=== PATIENT | female | born 1945 | race Caucasian/White ===

== ENCOUNTER 2018-09-29 09:30 | Inpatient (IN) | payer BC ==
--- NOTE | 2018-10-04 16:04 | HP ---
HISTORY AND PHYSICAL: DATE OF ADMISSION/SURGERY: 10/13/18 DATE OF OFFICE VISIT: 10/03/18 SURGEON: Natacha Ríos MD * (DICTATED BY CARY AHUJA) PROCEDURE: Left total knee arthroplasty. CHIEF COMPLAINT: Left knee pain. HISTORY OF PRESENT ILLNESS: Ms. Matt eLhman is a 72-year-old female with end - stage osteoarthritis of the left knee. She has failed conservative treatment and elected to proceed with a left total knee arthroplasty. PAST MEDICAL HISTORY: AFib, TIA x2, hypertension, SVT, history of colon cancer , history of breast cancer, thoracic aortic aneurysm, and lymphocytic colitis. PAST SURGICAL HISTORY: Cardiac moniter placement in her left breast, lumpectomy, hernia repair, , D and C, hysterectomy, oophorectomy, saphenous ligation of the left leg, and hemicolectomy. CURRENT MEDICATIONS: 1. Eliquis 5 mg twice a day. 2. Amlodipine 2.5 mg daily. 3. Sotalol 120 mg half a tab twice a day. 4. Losartan potassium 50 mg one and a half tabs daily. 5. Crestor 10 mg daily. 6. Potassium chloride 10 mEq twice a day. 7. Cranberry. 8. Caltrate. 9. Toprol 50 mg every morning. 10. CoQ10. 11. Claritin as needed. 12. Anastrozole 1 mg daily. 13. Multivitamin. 14. Glucosamine chondroitin. 15. Turmeric daily. 16. Budesonide 3 mg 2 capsules every day. ALLERGIES: No known drug allergies. FAMILY HISTORY: Cancer and coronary artery disease. SOCIAL HISTORY: She is a 72-year-old female. She lives with her . She does not smoke or use drugs. REVIEW OF SYSTEMS: A complete 14-point review of systems was reviewed with the patient. It was positive for history of 2 prior TIAs as well as some occasional palpitations. She denies history of DVT, PE, hepatitis, HIV, or anesthesia problems. PHYSICAL EXAMINATION GENERAL: She is well developed, well nourished, in no acute distress. VITAL SIGNS: She stands 63 inches tall, weighs 160 pounds. Her blood pressure is 110/88, her heart rate is 72. HEENT: Normocephalic, atraumatic. NECK: Supple. No palpable lymph nodes. PULMONARY: The lungs are clear to auscultation bilaterally. CARDIO: Regular rate and rhythm. Strong S1, S2. ABDOMEN: Soft, nontender, nondistended. NEUROLOGICAL: She is alert and oriented x3. MUSCULOSKELETAL: Left lower extremity, the skin is intact. There are no open wounds or abrasions. She has a moderate left knee effusion, tenderness over the medial and lateral joint line. Range of motion is 10 to 120 degrees of flexion. There is a varus alignment of the knee. She has 2+ dorsalis pedis pulse. Intact sensation. Her lower extremity muscle group strengths are intact at 5/5. ASSESSMENT AND PLAN: Ms. Matt Lehman is a 72-year-old female with end-stage osteoarthritis of the left knee. She has failed conservative treatment and elected to proceed with a left total knee arthroplasty, which is scheduled for 10/13/[address] Ríos. Dr. Ríos discussed the risks and benefits of the surgery at today's visit and all of her questions were answered. She will follow with Dr. Ríos 2 weeks after the surgery. She was instructed to stop her Eliquis and aspirin 5 days prior to the surgery. CARY AHUJA [id number]/[facility] #: [id number] NICK
[2018-10-12] MEDS ORDERED: Buffered Lidocaine 1% SYRIN* 1 ML/SYRINGE INTRADERM ONE (13:46)
[2018-10-13] MEDS ORDERED: Tranexamic Acid 1,000 MG in NS 0.9% 50 ML* (outpatient use) IV SCH ×2
[2018-10-13] MEDS ORDERED: Gabapentin CAP(*) 300 MG PO ONE (06:00)
[2018-10-13] MEDS ORDERED: Lactated Ringers 1000 ML Bag* 1,000 ML IV SCH (06:00)
[2018-10-13] MEDS ORDERED: Acetaminophen TAB* 325 MG PO ONE (06:00)
[2018-10-13] MEDS ORDERED: Famotidine IV* 10 MG/ML 2 ML (20 mg) IV ONE (06:00)
--- OUTSIDE RECORDS SUMMARY | 2018-10-13 07:01 | XMS REPORT | Continuity of Care Document ---
:1945 External Reference #:[id number] Author Name Kalee Foote Care Team Providers Name Role Phone Jamaal Rogers MD Primary Care Physician Unavailable Payers Type Date Identification Numbers Payment Provider Subscriber Policy Number: [id number] [employer] Amadou Wilkes JR PayID: [id number] [address] [address] O[place] Gomes [address] Effective: 2014 Policy Number: [facility] Ins Amadou Wilkes Jr [id number] Ppo/Epo Expires: 2018 Group Number: [id number] [address] PayID: [id number] [place] [address] Advance Directives Description No Information Available Problems Date Description Provider Status Onset: 01/15/2015 Syncope and collapse Ama Sargent M.D. Active Onset: 01/15/2015 Palpitations Ama Sargent M.D. Active Onset: 01/15/2015 Hypokalemia Ama Sargent M.D. Active Onset: 01/15/2015 Benign essential hypertension Ama Sargent M.D. Active Onset: 09/24/2016 Paroxysmal supraventricular Ama Sargent M.D. Active tachycardia Onset: 04/16/2017 Pure hypercholesterolemia Ama Sargent M.D. Active Onset: 05/14/2017 Presence of other cardiac implants Ama Sargent M.D. Active and grafts Onset: 05/14/2017 Altered mental status Nuno Eemry M.D. Active Onset: 06/25/2017 Transient cerebral ischemia Nuno Emery M.D. Active Onset: 03/23/2018 Localized, primary osteoarthritis Natacha Ríos M.D. Active Onset: 09/13/2018 Aneurysm of thoracic aorta Ama Sargent M.D. Active Family History Date Family Member(s) Problem(s) Comments General Heart Disease General Hypertension General Cancer Father Lung Cancer Mother Hypertension Mother Atrial Fibrillation vs SVT. 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 Tobacco Use Start: Unknown End: Former Cigarette Smoker Unknown ETOH Use Currently consumes one glass of red alcohol wine daily Recreational Drug Use Denies Drug Use Tobacco Use Start: Unknown End: Patient is a former Unknown smoker Smoking Status Reviewed: 10/03/18 Patient is a former smoker Exercise Type/Frequency Exercises sporadically Allergies, Adverse Reactions, Alerts Description No Known Drug Allergies Medications Medication Date Status Form Strength Qnty SIG Indications Ordering Provider Sotalol HCL 09/23/ Active Tablets 120mg 1/2 tab by I47.1 Ama 2019 mouth twice a Shaw[place]en navarrete M.D. Eliquis 04/11/ Active Tablets 5mg 180tab take 1 by I48.0 Mirella S. 2018 s mouth twice a , N.P. Amlodipine 02/28/ Active Tablets 2.5mg 90tabs 1 by mouth Ama Besylate 2017 every day Ashlee Sargent Tylenol 05/14/ Active Tablets ER 500 90tabs 2 tablets as Ama Extra 2017 needed Issa Sargent M.D. Losartan 04/16/ Active Tablets 50mg 135tab 1 1/2 tablets I10 Ama Potassium 2017 s daily as Rosetta, directed by Ashlee your doctor. Crestor 04/16/ Active Tablets 10mg 90tabs 1 by mouth Ama 2017 every day Ashlee Sargent Potassium 09/24/ Active Capsules 10Meq 180cap 1 tablet by I47.1 Mirella S. Chloride ER 2017 ER s mouth twice a , day.. N.P. Cranberry 00/ Active Capsules 400mg 2 tab daily Unknown 0000 Caltrate 600 00/ Active Tablets 1500mg 1 by mouth Unknown 0000 daily Toprol XL / Active Tablets ER 50mg 90tabs 1 by mouth Mirella S. 0000 24HR daily in the , morning N.P. Co Q-10 00/00/ Active Capsules 100mg 1 by mouth Unknown 0000 every day Claritin 00/00/ Active Tablets 10mg 1 by mouth Unknown 0000 every day as needed Anastrozole 00/ Active Tablets 1mg 1 by mouth Unknown 0000 every day Multi-Day 00/00/ Active Tablets 1 by mouth Unknown 0000 every day Glucosamine 00// Active 1 tabs po Unknown Chondroitin 0000 daily Complex Turmeric / Active Capsules 400mg 1 tab daily Unknown 0000 Budesonide / Active Caps DR 3mg Take 2 Unknown 0000 Part Capsules Every Day Eliquis 04/08/ Hx Tablets 2.5mg 180tab 1 tablet by I48.0 Mirella Nixon 2018 - s mouth twice a Foster, day. blood N.P. 2018 thinner. Sotalol HCL 06/03/ Hx Tablets 120mg 90tabs 1/2 tab by I47.1 Ama () 2016 - mouth twice a [place], 09/23/ day M.D. 2018 Sotalol HCL 05/14/ Hx Tablets 80mg 90tabs 1/2 tab by I47.1 Ama 2016 - mouth three [place], 06/03/ times a day M.D. 2016 ( you will need to cut pill in half and take 1/2 pill twice a day) [place] 07/29/ Hx Tablets 5-325mg 20tabs 1-2 tab by Marlene Valerio 2015 mouth every 4 Foster, hours as MD needed Fish Oil / Hx Capsules 1000mg 1 by mouth Unknown 0000 every day Aspirin // Hx Tablets 81mg 1 by mouth Unknown 0000 - every day 2017 Colace / Hx Capsules 100mg 1 by mouth Unknown 0000 - daily prn 2015 Crestor 00/ Hx Tablets 10mg 1 by mouth Unknown 0000 every day Osteo Bi-Flex 00/00/ Hx Tablets daily Unknown Advanced 0000 - Double With 2014 Joint Shield Coconut Oil / Hx Oil daily Unknown 0000 Zofran Odt 00/ Hx Tablets 4mg every 8 hours Unknown 0000 - Dispers as needed 2014 Entocort Ec / Hx Caps DR 3mg one every day Unknown 0000 - Part 2016 K Chloride / Hx 20Meq one tab daily I47.1 Unknown 0000 - 2016 Motrin Ib / Hx Tablets 200mg as needed Unknown - 2016 Aleve / Hx Tablets 220mg as needed Unknown - 2016 Estradiol Hx Estradiol Unknown 0000 1mg, E striol,1mg,Pr ogesterone 60mg,Dhea 5 mg, Pregnenolone 30mg,Testeron e 1mg half a lozenge daily Crestor / Hx Tablets 5mg 1 by mouth Unknown 0000 - every day 2016 Lisinopril / Hx Tablets 5mg 1 by mouth I10 Unknown 0000 - every day 2016 Aleve / Hx Capsules 220mg 1-2 by mouth Unknown 0000 - once a day as 2017 Entocort Hx Unknown - 2017 Medications Administered in Office Medication Date Status Form Strength Qnty SIG Indications Ordering Provider Depomedrol Administered Injection Natacha 40MG 018 Ashlee Ríos Technetium TC Administered Injection Arsen DMary 99M 015 Ashlee Corderoosmin, Per Unit Dose Up To 40 Millicuries Technetium TC Administered Injection Ama 99M 015 Jani Sargent M.D. Per Unit Dose Up To 40 Millicuries Immunizations Description No Information Available Vital Signs Date Vital Result Comment 10/03/2018 9:20am Height 63.75 inches 5'3.75" Weight 160.00 lb Heart Rate 78 /min BP Systolic Sitting 110 mmHg BP Diastolic Sitting 88 mmHg Pain Level 1 BMI (Body Mass Index) 27.7 kg/m2 09/13/2018 10:56am Height 63.75 inches 5'3.75" Weight 161.00 lb without shoes Heart Rate 64 /min BP Systolic Sitting 102 mmHg Lue lg cuff BP Diastolic Sitting 76 mmHg Lue lg cuff BP Systolic Standing 106 mmHg Lue lg cuff BP Diastolic Standing 80 mmHg Lue lg cuff BMI (Body Mass Index) 27.8 kg/m2 08/31/2018 9:02am Height 63.75 inches 5'3.75" Heart Rate 163 /min BP Systolic 110 mmHg BP Diastolic 72 mmHg Body Temperature 97.6 F Pain Level 4 07/05/2018 1:27pm Height 63.75 inches 5'3.75" Weight 164.00 lb no shoes Heart Rate 74 /min BP Systolic Sitting 112 mmHg lue reg cuff BP Diastolic Sitting 78 mmHg lue reg cuff BP Systolic Standing 116 mmHg lue reg cuff BP Diastolic Standing 80 mmHg lue reg cuff BMI (Body Mass Index) 28.4 kg/m2 Ejection Fraction 55-60% Anant 04/22/2017 06/07/2018 10:53am Height 63.75 inches 5'3.75" Weight 161.25 lb Heart Rate 72 /min BP Systolic Sitting 122 mmHg BP Diastolic Sitting 82 mmHg Respiratory Rate 16 /min O2 % BldC Oximetry 97 % BMI (Body Mass Index) 27.9 kg/m2 05/20/2018 3:25pm Height 63.75 inches 5'3.75" Weight 154.00 lb Heart Rate 81 /min Respiratory Rate 17 /min Pain Level 5 BMI (Body Mass Index) 26.6 kg/m2 04/08/2018 11:28am Height 63.75 inches 5'3.75" Weight 154.00 lb with shoes Heart Rate 66 /min BP Systolic Sitting 114 mmHg Rue reg cuff BP Diastolic Sitting 80 mmHg Rue reg cuff BP Systolic Standing 110 mmHg Rue reg cuf BP Diastolic Standing 80 mmHg Rue reg cuf Respiratory Rate 16 /min BMI (Body Mass Index) 26.6 kg/m2 03/23/2018 8:36am Height 63.75 inches 5'3.75" Weight 152.00 lb Heart Rate 76 /min BP Systolic 120 mmHg BP Diastolic 80 mmHg BMI (Body Mass Index) 26.3 kg/m2 01/14/2018 10:12am Height 64 inches 5'4" Weight 159.00 lb w/ shoes Heart Rate 72 /min BP Systolic Sitting 144 mmHg lue rg cuff BP Diastolic Sitting 82 mmHg lue rg cuff BP Systolic Standing 132 mmHg lue rg cuff BP Diastolic Standing 88 mmHg lue rg cuff Respiratory Rate 18 /min BMI (Body Mass Index) 27.3 kg/m2 Ejection Fraction 55-60% Anant 04/22/17 09/16/2017 1:29pm Height 64 inches 5'4" Weight 156.00 lb Heart Rate 64 /min BP Systolic Sitting 132 mmHg Rue reg cuff BP Diastolic Sitting 92 mmHg Rue reg cuff BP Systolic Standing 128 mmHg Rue BP Diastolic Standing 96 mmHg Rue Respiratory Rate 18 /min BMI (Body Mass Index) 26.8 kg/m2 Ejection Fraction 55-60% 04/12/17 06/25/2017 2:21pm Height 64 inches 5'4" Weight 152.00 lb per pt Heart Rate 72 /min reg BP Systolic Sitting 104 mmHg Rue, reg cuff BP Diastolic Sitting 64 mmHg Rue, reg cuff Respiratory Rate 16 /min BMI (Body Mass Index) 26.1 kg/m2 06/18/2017 12:47pm Height 64 inches 5'4" Weight 152.31 lb with shoes Heart Rate 70 /min BP Systolic Sitting 140 mmHg Rue reg cuff BP Diastolic Sitting 80 mmHg Rue reg cuff BP Systolic Standing 134 mmHg Rue reg cuff BP Diastolic Standing 78 mmHg Rue reg cuff Respiratory Rate 17 /min BMI (Body Mass Index) 26.1 kg/m2 Ejection Fraction 55-60% date 04/12/17 ECHO 06/03/2017 10:03am Height 64 inches 5'4" Weight 153.50 lb with shoes Heart Rate 62 /min BP Systolic 146 mmHg Rue reg cuff sit BP Diastolic 94 mmHg Rue reg cuff sit BP Systolic Sitting 140 mmHg Lue reg cuff BP Diastolic Sitting 90 mmHg Lue reg cuff BP Systolic Standing 128 mmHg Lue reg cuff BP Diastolic Standing 88 mmHg Lue reg cuff BP Systolic Lying Down 136 mmHg Rue reg cuff standing BP Diastolic Lying Down 94 mmHg Rue reg cuff standing Respiratory Rate 16 /min BMI (Body Mass Index) 26.3 kg/m2 05/14/2017 2:19pm Height 64 inches 5'4" Weight 151.00 lb Heart Rate 82 /min BP Systolic 118 mmHg BP Diastolic 86 mmHg BMI (Body Mass Index) 25.9 kg/m2 05/14/2017 11:10am Height 64 inches 5'4" Weight 153.25 lb with shoes Heart Rate 70 /min BP Systolic Sitting 120 mmHg Rue reg cuff BP Diastolic Sitting 90 mmHg Rue reg cuff BP Systolic Standing 120 mmHg Rue reg cuff BP Diastolic Standing 92 mmHg Rue reg cuff Respiratory Rate 17 /min BMI (Body Mass Index) 26.3 kg/m2 Ejection Fraction 55-60% date 04/12/17 ECHO 04/16/2017 8:01am Height 64 inches 5'4" Weight 152.00 lb Heart Rate 64 /min BP Systolic Sitting 144 mmHg BP Diastolic Sitting 100 mmHg BP Systolic Standing 138 mmHg BP Diastolic Standing 100 mmHg BMI (Body Mass Index) 26.1 kg/m2 Ejection Fraction 55-60% ECHO 04/12/17 09/24/2016 1:23pm Height 64 inches 5'4" Weight 152.00 lb with shoes Heart Rate 68 /min BP Systolic Sitting 120 mmHg Rue reg cuff BP Diastolic Sitting 78 mmHg Rue reg cuff BP Systolic Standing 108 mmHg Rue reg cuff BP Diastolic Standing 72 mmHg Rue reg cuff Respiratory Rate 17 /min BMI (Body Mass Index) 26.1 kg/m2 Ejection Fraction 60% 03/22/12 echo 08/17/2016 2:21pm Heart Rate 72 /min BP Systolic 116 mmHg BP Diastolic 70 mmHg Respiratory Rate 18 /min Body Temperature 97.3 F 07/29/2016 1:08pm Height 65 inches 5'5" Weight 154.00 lb Heart Rate 72 /min BP Systolic 128 mmHg BP Diastolic 82 mmHg Respiratory Rate 18 /min Body Temperature 97.5 F BMI (Body Mass Index) 25.6 kg/m2 07/20/2016 3:46pm Height 65 inches 5'5" Weight 154.00 lb Heart Rate 78 /min BP Systolic 120 mmHg BP Diastolic 82 mmHg Respiratory Rate 16 /min Body Temperature 97.5 F BMI (Body Mass Index) 25.6 kg/m2 03/05/2015 8:55am Height 65 inches 5'5" Weight 152.00 lb with shoes Heart Rate 76 /min BP Systolic Sitting 126 mmHg Ra, reg cuff BP Diastolic Sitting 82 mmHg Ra, reg cuff BP Systolic Standing 124 mmHg Ra BP Diastolic Standing 86 mmHg Ra Respiratory Rate 16 /min BMI (Body Mass Index) 25.3 kg/m2 Ejection Fraction 60% 03/22/2012 01/15/2015 10:45am Height 65 inches 5'5" Weight 152.00 lb Heart Rate 62 /min BP Systolic 108 mmHg right arm, reg cuff BP Diastolic 78 mmHg right arm, reg cuff BP Systolic Sitting 114 mmHg left arm, reg cuff BP Diastolic Sitting 80 mmHg left arm, reg cuff BP Systolic Standing 104 mmHg left arm, reg cuff BP Diastolic Standing 80 mmHg left arm, reg cuff Respiratory Rate 16 /min BMI (Body Mass Index) 25.3 kg/m2 Results Test Date Facility Test Result H/L Range Note Basic Metabolic 09/20/2018 [facility] Sodium 138 mmol/L N 135- [address] [place] [address] [phone] Potassium 4.2 mmol/L N 3.5-5.0 Chloride 102 mmol/L N 101-111 Co2 Carbon Dioxide 32 mmol/L N 22-32 Anion Gap 4 mmol/L N 2-11 Glucose 90 mg/dL N 70-100 Blood Urea Nitrogen 15 mg/dL N 6-24 Creatinine 0.72 mg/dL N 0.51-0.95 BUN/Creatinine Ratio 20.8 High 8-20 Calcium 9.8 mg/dL N 8.6-10.3 Egfr Non- 79.9 >60 Egfr 96.6 >60 1 Laboratory test 02/09/2018 [facility] Cytology SEE RESULT 2 , [address] [place] [address] [phone] Laboratory test 02/09/2018 [facility] Cytology SEE RESULT [address] [place] [address] [phone] Istat 04/20/2017 [facility] Poc Bun 22 mg/dL High 9-18 BUN/Crea/Egfr/V [address] [place] [address] [phone] Poc Crea Mainct 0.7 mg/dL N 0.6-0.9 GFR Non- MCT 82.7 N >60 GFR Mainct 106.4 N >60 5 Vitamin B12 And 04/20/2017 [facility] Vitamin B12 646 pg/mL N 180-914 6 Folate Serum [address] [place] [address] [phone] Folic Acid (Folate) > 20.00 ng/mL N >3.99 Laboratory test 04/20/2017 [facility] TSH (Thyroid 1.72 mcIU/mL N 0.34-5.[address] Stim [place]) [place] [address] [phone] Homocysteine 5 mcmol/L N 7 Nuclear AB (Katya) By Ifa Igg <1:80 (Negative) N 8 Laboratory test 08/07/2016 [facility] Surgical SEE RESULT [address] [place] [address] [phone] Laboratory test 07/13/2016 [facility] Surgical SEE RESULT [address] [place] [address] [phone] 1 Because ethnic data is not always readily available, this report includes an eGFR for both -Americans and non- Americans. The National Kidney Disease Education Program (NKDEP) does not endorse the use of the MDRD equation for patients that are not between the ages of 18 and 70, are , have extremes of body size, muscle mass, or nutritional status, or are non- or non-. According to the National Kidney Foundation, irrespective of diagnosis, the stage of the disease is based on the level of kidney function: Stage Description GFR(mL/min/1.73 m(2)) 1 Kidney damage with normal or decreased GFR 90 2 Kidney damage with mild decrease in GFR 60-89 3 Moderate decrease in GFR 30-59 4 Severe decrease in GFR 15-29 5 Kidney failure <15 (or dialysis) 2 NO TRACKING 3 SEE RESULT BELOW Name: JULIANNA MANUEL : [address]: Jamaal Rogers MD Acct: [id number] Unit: [id number] AGE: 72 Location: [facility] Re02/09/18 SEX: F Status: REG REF SPEC: [id number] AMPARO: 02/09/18-[address]: Jamaal Rogers MD REQ: [id number] RECD: 02/09/184540 STATUS: AVINASH LEBRON DR: Ama Sargent MD _ ORDERED: NG THIN LAYER COMMENTS: NO TRACKING FINAL DIAGNOSIS Urine, voided: Negative for malignant cells. URINE VOID - URINE GROSS DESCRIPTION 50 mls of clear yellow fluid. Signed by and Reported on: Abel Gil MD 1248 END OF REPORT DEPARTMENT OF PATHOLOGY, [address] [place] [address] Abel Gil M.D. Director [facility] # [id number] 4 SEE RESULT BELOW Name: ANNA AVIVARosettaJULIANNA : [address]: Jamaal Rogers MD Acct: [id number] Unit: [id number] AGE: 72 Location: [facility] Re02/09/18 SEX: F Status: REG REF SPEC: [id number] AMPARO: 06/ SUBM DR: Jamaal Rogers MD REQ: [id number] RECD: 02/09/18 STATUS: AVINASH LEBRON DR: Ama Sargent MD _ ORDERED: NG THIN LAYER COMMENTS: NO TRACKING FINAL DIAGNOSIS Urine, voided: Negative for malignant cells. URINE VOID - URINE GROSS DESCRIPTION 50 mls of clear yellow fluid. Signed by and Reported on: Abel Gil MD 1248 END OF REPORT DEPARTMENT OF PATHOLOGY, [address] [place] [address] Abel Gil M.D. Director [facility] # [id number] 5 Because ethnic data is not always readily available, this report includes an eGFR for both -Americans and non- Americans. The National Kidney Disease Education Program (NKDEP) does not endorse the use of the MDRD equation for patients that are not between the ages of 18 and 70, are , have extremes of body size, muscle mass, or nutritional status, or are non- or non-. According to the National Kidney Foundation, irrespective of diagnosis, the stage of the disease is based on the level of kidney function: Stage Description GFR(mL/min/1.73 m(2)) 1 Kidney damage with normal or decreased GFR 90 2 Kidney damage with mild decrease in GFR 60-89 3 Moderate decrease in GFR 30-59 4 Severe decrease in GFR 15-29 5 Kidney failure <15 (or dialysis) 6 Normal Range 180 to 914 Indeterminate Range 145 to 180 Deficient Range <145 7 REFERENCE VALUE <=13 (Fasting) ADDITIONAL INFORMATION This test was developed and its performance characteristics determined by [facility] in a manner consistent with CLIA requirements. This test has not been cleared or approved by the U.S. Food and Drug Administration. Test Performed by: [facility] - [address] [address] 8 <1:80 (Negative) REFERENCE VALUE <1:80 (Negative) Test Performed by: [facility] - [address] [address] 9 SEE RESULT BELOW Name: ANNA JULIANNA WILKES : [address]: Marlene Suárez MD Acct: [id number] Unit: [id number] AGE: 70 Location: [facility] Re08/07/16 SEX: F Status: REG [facility] SPEC: [id number] AMPARO: 08/07/16-1257 [facility] DR: Marlene Suárez MD REQ: [id number] RECD: 08/07/16 STATUS: SOUT _ ORDERED: KERATIN STAIN/5, LEVEL V/3 Pankeratin immunostains, with appropriately reacting controls, were performed on sections cut from blocks 1D, 1F, 1G, and 2D and support the previously rendered diagnoses. There is no evidence of invasive carcinoma. Addendum Signed (signature on file) Sonya Henley MD 1503 FINAL DIAGNOSIS 1. Breast, left, lumpectomy: -- Ductal carcinoma in situ (DCIS), with: Size: 5.2 mm. Extent and distribution: Present adjacent to prior biopsy cavity. Architectural pattern: Cribriform solid, and comedo types. Nuclear grade: High. Necrosis: Present. Microcalcifications: Present. Microinvasion: Not identified. ER/AR by immunohistochemistry with appropriate controls: ER: Per [id number] positive, 2-3 plus, 60%. AR: Per [id number] negative. Margins: All margins are negative by greater than 5 mm. Other findings: Skin with no significant pathologic abnormalities. pTNM histopathologic stage: pTis. 2. Breast, left, medial to first specimen, excision: -- Benign breast tissue with prior biopsy site changes, proliferative fibrocystic change, focal microcalcifications, and duct ectasia. 3. Brick lymph node #1, excision: -- One lymph node negative for metastatic carcinoma (0/1). COMMENT: CONTINUED ON NEXT PAGE * ML=Testing performed at Main Lab DEPARTMENT OF PATHOLOGY, [address] [place] [address] Abel Gil M.D. Director [facility]ONO # [id number] RUN DATE: 08/11/16 [facility] LAB LIVE PAGE 2 Patient: JULIANNA MANUEL [id number] (Continued) SPECIMEN COMMENTS (Continued) Per Brick lymph node protocol, a pankeratin immunostain, with appropriately reacting controls, was performed on sections cut from specimen [address] Gil reviewed this case in intradepartmental consultation and agrees with the diagnosis. PRE-OPERATIVE DIAGNOSIS Malignant neoplasm of upper outer quadrant of left breast; usual markings GROSS DESCRIPTION 1. The specimen is received fresh labeled, Excision of Left Breast Cancer, Usual Markings, and consists of a 5.5 x 4.3 x 2.0 cm yellow pink ovoid portion of fibrofatty soft tissue with three attached sutures, which are designated as follows: long-lateral, short-superior and medium-medial. The specimen is partially surfaced by a 2.1 x 0.5 cm castillo- pink wrinkled skin ellipse on the mid anterior lateral surface. There is a needle localization wire entering the specimen through the skin ellipse and extending towards the superior anterior medial aspect. There is a 1.3 x 0.8 x 0.7 cm markedly hemorrhagic cavity within the central specimen associated with the localization wire, within 0.5 cm of the deep margin and 0.8 cm from the superior anterior margin. Within the cavity there is a 0.2 x 0.1 cm silver metallic clip. The remaining cut surface consists predominantly of mildly hemorrhagic yellow lobulated adipose tissue with scant interspersed castillo-pink fibrous tissue. The specimen is inked as follows: superior anterior-blue, inferior anterior- green and deep-black, serially sectioned from lateral to medial and indirect sales representative sections are submitted in cassettes A through J to include cavity in cassettes D through G including section containing clip in cassette E. 2. The specimen is received in formalin labeled, Left Breast Tissue, Medial to First Specimen, and consists of a 5.8 x 4.8 x 2.7 cm yellow-pink irregular portion of fibrofatty soft tissue with three attached sutures, which are designated as follows: long-lateral, short-superior and medium-medial. The lateral margin is consistent with the false margin while the medial margin is consistent with the true margin. The cut surface consists of moderately hemorrhagic yellow-red lobulated adipose tissue with scant interspersed castillo-white fibrous tissue. The discrete lesion is not identified. The specimen is inked as follows: false margin-yellow, anterior true margin-blue and remaining true margin- black, serially sectioned from superior to inferior and indirect sales representative sections are submitted in cassettes A through I. 3. The specimen is received in formalin labeled, Brick Node #1, and consists of a 1.0 x 0.7 x 0.5 cm castillo-pink lymph node with a small amount of adherent yellow fat. The cut surface is glistening castillo-pink. The specimen is serially sectioned and entirely submitted in one cassette. CONTINUED ON NEXT PAGE * ML=Testing performed at Main Lab DEPARTMENT OF PATHOLOGY, [address] [place] [address] Abel Gil M.D. Director [facility] # [id number] RUN DATE: 08/11/16 [facility] LAB LIVE PAGE 3 Patient: JULIANNA MANUEL [id number] (Continued) GROSS DESCRIPTION (Continued) Signed (signature on file) Sonya Henley MD 1114 END OF REPORT * ML=Testing performed at Main Lab DEPARTMENT OF PATHOLOGY, [address] [place] [address] Abel Gil M.D. Director [facility] # [id number] 10 SEE RESULT BELOW Name: JULIANNA MANUEL : [address]: Jose R Reece MD Acct: [id number] Unit: [id number] AGE: 70 Location: [facility] Re07/13/16 SEX: F Status: REG REF SPEC: [id number] AMPARO: 07/13/16 [facility] [address]: Jose R Reece MD REQ: [id number] RECD: 07/27/16 STATUS: AVINASH LEBRON DR: Marlene Olivares PA _ ORDERED: Consult w/slide FINAL DIAGNOSIS Breast, left, core biopsy: -- Ductal carcinoma in situ (DCIS), with: Size: 3.8 mm largest span. Extent and distribution: 2 small foci seen occupying approximately 10% of total core volume. Architectural pattern: Solid and cribriform. Nuclear grade: 3. Necrosis: Present. Microcalcifications: Present in association with DCIS as well as benign breast tissue. Microinvasion: Not seen. ER/AR by immunohistochemistry with appropriate controls: ER: Positive, 2-3 plus, 60% of DCIS component. AR: Negative. Other findings: None. Predicted pTNM histopathologic stage: pTis. Comment: I agree with the referring pathologist interpretation. PRE-OPERATIVE DIAGNOSIS Ductal carcinoma in situ left breast GROSS DESCRIPTION Received are 2 hematoxylin and eosin stained slides as well as 2 immunohistochemical he stained slides labeled with the patient's name and a OS-1 6-0 9119 [facility]. Accompanying these slides is a pathology report labeled with the patient's name and a OS-1 6-0 9119 [facility], [address] [place] [address], signed by Dr. JARAMILLO CONTINUED ON NEXT PAGE * ML=Testing performed at Main Lab DEPARTMENT OF PATHOLOGY, [address] [place] [address] Abel Gil M.D. Director [facility] # [id number] RUN DATE: 07/27/16 [facility] LAB LIVE PAGE 2 Patient: JULIANNA MANUEL [id number] (Continued) GROSS DESCRIPTION (Continued) GROSS DESCRIPTION (Continued) Shanell on 07/15/2016 Signed (signature on file) Abel Gil MD 1535 END OF REPORT * ML=Testing performed at Main Lab DEPARTMENT OF PATHOLOGY, [address] [place] [address] Abel Gil M.D. Director [facility] # [id number] Procedures Date Code Description Status 09/20/2018 41417 ECHO Transthoracic, Real-Time 2D With Doppler And Color Completed Flow 09/20/2018 19777 ECHO Transthoracic, Real-Time 2D With Doppler And Color Completed Flow 09/13/2018 84718 EKG Tracing & Interpretation Completed 08/15/2018 36523 Implantable Cardio System Loop Recorder Sys Remota Data Completed Acquistio 08/15/2018 19101 Interrogation Dev Loop Recorder Incl Physician Completed Analysis,Rev,Repor 07/15/2018 07052 Implantable Cardio System Loop Recorder Sys Remota Data Completed Acquistio 07/15/2018 17778 Interrogation Dev Loop Recorder Incl Physician Completed Analysis,Rev,Repor 07/05/2018 34295 EKG Tracing & Interpretation Completed 06/16/2018 42897 Sleep Study Unattended,HRT Rate,Oxygen Sat,Resp Completed Effort/Airflow 06/14/2018 93306 Implantable Cardio System Loop Recorder Sys Remota Data Completed Acquistio 06/14/2018 34342 Interrogation Dev Loop Recorder Incl Physician Completed Analysis,Rev,Repor 05/14/2018 72429 Implantable Cardio System Loop Recorder Sys Remota Data Completed Acquistio 05/14/2018 01723 Interrogation Dev Loop Recorder Incl Physician Completed Analysis,Rev,Repor 04/13/2018 95397 Implantable Cardio System Loop Recorder Sys Remota Data Completed Acquistio 04/13/2018 83280 Interrogation Dev Loop Recorder Incl Physician Completed Analysis,Rev,Repor 03/23/2018 20955 Inject/Drain Joint/Bursa Major W/O US Completed 03/13/2018 08823 Implantable Cardio System Loop Recorder Sys Remota Data Completed Acquistio 03/13/2018 10544 Interrogation Dev Loop Recorder Incl Physician Completed Analysis,Rev,Repor 02/10/2018 10337 Implantable Cardio System Loop Recorder Sys Remota Data Completed Acquistio 02/10/2018 68685 Interrogation Dev Loop Recorder Incl Physician Completed Analysis,Rev,Repor 01/14/2018 20620 EKG Tracing & Interpretation Completed 01/10/2018 46122 Implantable Cardio System Loop Recorder Sys Remota Data Completed [place] 01/10/2018 49727 Interrogation Dev Loop Recorder Incl Physician Completed Analysis,Rev,Repor 12/10/2017 90792 Implantable Cardio System Loop Recorder Sys Remota Data Completed [place] 12/10/2017 84716 Interrogation Dev Loop Recorder Incl Physician Completed Analysis,Rev,Repor 11/09/2017 29858 Implantable Cardio System Loop Recorder Sys Remota Data Completed [place]io 11/09/2017 74027 Interrogation Dev Loop Recorder Incl Physician Completed Analysis,Rev,Repor 10/09/2017 24937 Implantable Cardio System Loop Recorder Sys Remota Data Completed [place] 10/09/2017 12434 Interrogation Dev Loop Recorder Incl Physician Completed Analysis,Rev,Repor 09/16/2017 86742 EKG Tracing & Interpretation Completed 09/08/2017 60272 Interrogation Dev Loop Recorder Incl Physician Completed Analysis,Rev,Repor 09/08/2017 77777 Implantable Cardio System Loop Recorder Sys Remota Data Completed [place] 08/08/2017 94729 Implantable Cardio System Loop Recorder Sys Remota Data Completed [place]io 08/08/2017 42709 Interrogation Dev Loop Recorder Incl Physician Completed Analysis,Rev,Repor 07/08/2017 87747 Implantable Cardio System Loop Recorder Sys Remota Data Completed [place] 07/08/2017 72401 Interrogation Dev Loop Recorder Incl Physician Completed Analysis,Rev,Repor 06/18/2017 33527 EKG Tracing & Interpretation Completed 06/07/2017 56904 Implantable Cardio System Loop Recorder Sys Remota Data Completed [place] 06/07/2017 14782 Interrogation Dev Loop Recorder Incl Physician Completed Analysis,Rev,Repor 06/03/2017 61620 EKG Tracing & Interpretation Completed 05/24/2017 98757 Interrogation Device Eval,Implantable Loop Recorder Completed System 05/14/2017 54063 Interrogation Device Eval,Implantable Loop Recorder Completed System 05/06/2017 16997 Implant Cardiac Loop Recorder Completed 04/22/2017 72444 Color Flow Doppler/Interp & Reprt Completed 04/22/2017 53924 Pulse Wave/Continuous-Interp.RPT Completed 04/22/2017 76924 Echocardiography, Transesophageal, Real Time W/Image 2D Completed W/W/O M-M 04/19/2017 76463 EEG Recording Awake & Drowsy Completed 04/16/2017 89695 EKG Tracing & Interpretation Completed 04/12/2017 40444 ECHO Transthorasic Realtime 2D W Doppler & Color Flow Completed Hosp 09/24/2016 74207 EKG Tracing & Interpretation Completed 08/07/2016 87382 Biopsy/Excision Deep Axillary Node(S) Completed 08/07/2016 62275 Mastectomy Partial Completed 08/07/2016 39420788 Mammogram Completed 06/30/2016 [id number] Mammogram Completed 03/22/2015 70222 Stress Test Completed 03/22/2015 19155 Myocardial Perfusion Imaging Tomographic (Spect) Completed Multiple Studies 03/22/2015 21312 Myocardial Perfusion Imaging Tomographic (Spect) Completed Multiple Studies 02/19/2015 69500 Stress ECHO Interpretation/Report Hospital Completed 02/19/2015 36221 Treadmill Interp/Report Only Completed 02/19/2015 90100 Stress Test Supervsn W/Out I/R Completed 01/15/2015 04738 EKG Tracing & Interpretation Completed Encounters Type Date Location Provider Dx Diagnosis Office Visit 09/13/2018 [facility] Ama Sargent, Z01.810 Encounter for 11:30a Of Meme Rosado preprocedural cardiovascular examination I47.1 Supraventricular tachycardia I48.0 Paroxysmal atrial fibrillation I10 Essential (primary) hypertension R55 Syncope and collapse G45.9 Transient cerebral ischemic attack, unspecified I71.2 Thoracic aortic aneurysm, without rupture M17.12 Unilateral primary osteoarthritis, left knee Office Visit 08/31/2018 8:45a Orthopedic Services Natacha Ríos, M25.562 Pain in left Of C.M.A. M.D. 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 K52.832 Lymphocytic colitis Z85.030 Personal history of malignant carcinoid tumor of lg int Office Visit 07/05/2018 [place] Mirella Nixon I47.1 Supraventricular 1:30p Cardiology Of Jose Armando N.PMary tachycardia Grievance And Appeals Specialist G47.33 Obstructive sleep apnea (adult) (pediatric) I48.0 Paroxysmal atrial fibrillation I10 Essential (primary) hypertension Office Visit 06/07/2018 11:00a Pulmonology & Sleep Anabel Cortez, R06.83 Snoring Services AT [place] BARON R09.02 Hypoxemia Office Visit 05/20/2018 Orthopedic Natacha I47.1 Supraventricular 3:15p Services [facility] Ríos tachycardia C.M.A. I48.0 Paroxysmal atrial fibrillation Z95.818 Presence of other cardiac implants and grafts M25.461 Effusion, right knee M25.562 Pain in left knee M17.12 Unilateral primary osteoarthritis, left knee Office Visit 04/08/2018 11:30a [facility] Mirella SMary I48.0 Paroxysmal atrial Of Grievance And Appeals Specialist Jose Armando, N.P. fibrillation I47.1 Supraventricular tachycardia Z95.818 Presence of other cardiac implants and grafts I10 Essential (primary) hypertension Office Visit 03/23/2018 Orthopedic Natacha I47.1 Supraventricular 8:30a Services [facility] Ríos tachycardia C.M.A. 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 Z17.0 Estrogen receptor positive status [ER+] M25.50 Pain in unspecified joint K52.832 Lymphocytic colitis Z85.038 Personal history of malignant neoplasm of large intestine Office Visit 01/14/2018 Billy Sargent I47.1 Supraventricular 10:20a Cardiology Of [place] tachycardia Grievance And Appeals Specialist AT [facility] Z95.818 Presence of other cardiac implants and grafts E78.00 Pure hypercholesterolemia, unspecified I10 Essential (primary) hypertension Office Visit 09/16/2017 Billy Sargent I47.1 Supraventricular 1:50p Cardiology Of [place] tachycardia [facility] R55 Syncope and collapse Z95.818 Presence of other cardiac implants and grafts Office Visit 06/30/2017 4:30p Oncology Cristal Crews, D05.12 Intraductal Services Of Meme Rosado carcinoma in situ AT [place] of left breast Z17.0 Estrogen receptor positive status [ER+] M25.50 Pain in unspecified joint Z85.038 Personal history of malignant neoplasm of large intestine Office Visit 06/25/2017 Mitch Reina I47.1 Supraventricular 2:15p Kailyn Emery M.D. tachycardia [facility] Z86.73 Prsnl hx of TIA (TIA), and cereb infrc w/o resid deficits Z79.82 intermediate (current) use of aspirin Office Visit 06/18/2017 Billy Sargent I47.1 Supraventricular 1:00p Cardiology Of [place] tachycardia [facility] Z95.818 Presence of other cardiac implants and grafts G45.9 Transient cerebral ischemic attack, unspecified R55 Syncope and collapse Office Visit 05/14/2017 Mitch Reina R41.0 Disorientation, 2:15p Kailyn Emery M.D. unspecified Services [facility] Office Visit 05/14/2017 Billy Sargent, G45.9 Transient cerebral 11:20a Cardiology Of M.D. ischemic attack, [facility] AT [facility] unspecified R55 Syncope and collapse Z95.818 Presence of other cardiac implants and grafts I47.1 Supraventricular tachycardia I63.9 Cerebral infarction, unspecified Office Visit 04/16/2017 8:15a [facility] Ama Sargent, G45.9 Transient Of [facility] M.D. cerebral ischemic attack, unspecified I10 Essential (primary) hypertension E78.00 Pure hypercholesterolemia, unspecified I47.1 Supraventricular tachycardia C18.9 Malignant neoplasm of colon, unspecified D48.60 Neoplasm of uncertain behavior of unspecified breast R05 Cough Office Visit 04/16/2017 Mitch Emery, G45.9 Transient 11:00a Neurologic M.D. cerebral ischemic [facility] attack, unspecified R41.1 Anterograde amnesia R41.0 Disorientation, unspecified Z79.82 intermediate (current) use of aspirin I10 Essential (primary) hypertension Office Visit 01/13/2017 Oncology Cristal Crews, Z51.12 Encounter for 9:11a Services Of M.D. 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 Collapse 785.1 Palpitations 794.39 Cardiovascular Study Other Abnormal Office Visit 01/15/2015 10:15a [place] Ama Sargent, 780.2 Syncope & Cardiology M.D. Collapse 785.1 Palpitations 276.8 Hypopotassemia 401.1 Hypertension Benign Plan of Treatment Future Appointment(s):10/26/2018 11:30 am - Natacha Ríos M.D. at [facility]10/13/2018 8:00 am - CLAUDINE Costa at [facility].10/13/2018 8:00 am - CARY Matute at [facility]10/13/2018 8:00 am - Natacha Ríos M.D. at [facility]10/03/2018 - Natacha Ríos M.D.M17.12 Unilateral primary osteoarthritis, left kneeFollow up:Follow up: 2 weeks after itkkuhtS90.562 Pain in left knee
--- OUTSIDE RECORDS SUMMARY | 2018-10-13 07:02 | XMS REPORT | Continuity of Care Document ---
:1945 External Reference #:[id number] Author Name Anna Matthew Care Team Providers Name Role Phone Jamaal Rogers MD Primary Care Physician Unavailable Payers Type Date Identification Numbers Payment Provider Subscriber Policy Number: [id number] [employer] Amadou Lehman JR PayID: [id number] [address] [address] [place] Gomes [address] Effective: 2014 Policy Number: [facility] Ins Amadou Lehman Jr [id number] Ppo/Epo Expires: 2018 Group Number: [id number] [address] PayID: [id number] [place] [address] Advance Directives Description No Information Available Problems [...] grafts Onset: 05/14/2017 Altered mental status Nuno Emery M.D. 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 2018 s mouth twice a , N.P. Amlodipine 02/28/ Active Tablets 2.5mg 90tabs 1 by mouth Ama Besylate 2017 every day Ashlee Sargent Sotalol HCL 06/03/ Active Tablets 120mg 90tabs 1/2 tab by I47.1 Ama (AF) 2017 mouth twice a Rosetta, day Ashlee Tylenol 05/14/ Active Tablets ER 500 90tabs 2 tablets as Ama Extra 2017 needed [place] M.D. Losartan 04/16/ Active Tablets 50mg 135tab [...] by mouth Unknown 0000 every day Claritin /00/ Active Tablets 10mg 1 by mouth Unknown 0000 every day as needed Anastrozole 00/ Active Tablets 1mg 1 by mouth Unknown 0000 every day Multi-Day 00/00/ Active Tablets 1 by mouth Unknown 0000 every day Glucosamine 00// Active 1 tabs po Unknown Chondroitin 0000 daily Complex Turmeric / Active Capsules 400mg 1 tab daily Unknown 0000 Budesonide / Active Caps DR 3mg Take 3 Unknown 0000 Part Capsules Every Day Eliquis 04/08/ Hx Tablets 2.5mg 180tab 1 tablet by I48.0 Mirella Nixon 2018 - s mouth twice a Foster, day. blood N.P. 2018 thinner. Sotalol HCL 05/14/ Hx Tablets 80mg 90tabs 1/2 tab by I47.1 Ama 2016 - mouth three [place], 06/03/ times a day M.D. 2017 ( you will need to cut pill in half and take 1/2 pill twice a day) [place] 07/29/ Hx Tablets 5-325mg 20tabs 1-2 tab by Marlene Valerio 2016 mouth every 4 Foster, hours as MD needed Fish Oil / Hx Capsules 1000mg 1 by mouth Unknown 0000 every day Aspirin / Hx Tablets 81mg 1 by mouth Unknown 0000 - every day 2017 Colace 00/ Hx Capsules 100mg 1 by mouth Unknown 0000 - daily prn 2015 Crestor 00/ Hx Tablets 10mg 1 by mouth Unknown 0000 every day Osteo Bi-Flex / Hx Tablets daily Unknown Advanced 0000 - Double With 2014 Joint [facility] Coconut Oil 00/ Hx Oil daily Unknown 0000 Zofran Odt 00/ Hx Tablets 4mg every 8 hours Unknown 0000 - Dispers as needed 2014 Entocort Ec / Hx Caps DR 3mg one every day Unknown 0000 - Part 2016 K Chloride 00/ Hx 20Meq one tab daily I47.1 Unknown 0000 - 2016 Motrin Ib 00/ Hx Tablets 200mg as needed Unknown 0000 - 2016 Aleve /00/ Hx Tablets 220mg as needed Unknown 0000 - 2016 Estradiol / Hx Estradiol Unknown 0000 1mg, E striol,1mg,Pr [...] - once a day as 2017 Entocort / Hx Unknown 0000 - 2017 Medications Administered in Office Medication Date Status Form Strength Qnty SIG Indications Ordering Provider Depomedrol Administered Injection Natacha 40MG 018 Ashlee Ríos Technetium TC Administered Injection Arsen DMary 99M 015 Ashlee Cordero Tetrofosmin, Per Unit Dose Up To 40 Millicuries Technetium TC Administered Injection Ama 99M 015 Jani Sargent M.D. Per Unit Dose Up To 40 Millicuries Immunizations Description No Information Available Vital Signs Date Vital Result Comment 09/13/2018 10:56am Height 63.75 inches 5'3.75" Weight [...] Date Facility Test Result H/L Range Note Laboratory test 02/09/2018 [facility] Cytology SEE RESULT [address] Non-[employer]el[employer] [place] [address] [phone] Laboratory test 02/09/2018 [facility] Cytology SEE RESULT 2 , [address] Non[place] [place] [address] [phone] Laboratory test 04/20/2017 [facility] TSH (Thyroid 1.72 mcIU/mL N 0.34-5.[address] Stim Horm) [place] [address] [phone] Homocysteine 5 mcmol/L N 4 Nuclear AB (Katya) By Ifa Igg <1:80 (Negative) N 5 Vitamin B12 And 04/20/2017 [facility] Vitamin B12 646 pg/mL N 180-914 6 Folate Serum [address] [place] [address] [phone] Folic Acid (Folate) > 20.00 ng/mL N >3.99 Istat BUN/Crea/Egfr/V 04/20/2017 [facility] Poc Bun 22 mg/dL High 9-[address] [place] [address] [phone] Poc Crea Mainct 0.7 mg/dL N 0.6-0.9 GFR Non- MCT 82.7 N >60 GFR Mainct 106.4 N >60 7 Laboratory test 08/07/2016 [facility] Surgical SEE RESULT [address] [place] [address] [phone] Laboratory test 07/13/2016 [facility] Surgical SEE RESULT [address] [place] [address] [phone] 1 SEE RESULT BELOW Name: JULIANNA MANUEL : [address]: Jamaal Rogers MD Acct: [id number] Unit: [id number] AGE: 72 Location: [facility] Re02/09/18 SEX: F Status: REG REF SPEC: [id number] AMPARO: 02/09/18-[address] [facility] [address]: Jamaal Rogers MD REQ: [id number] RECD: 02/09/18 STATUS: AVINASH LEBRON DR: Ama Sargent MD _ ORDERED: NG THIN LAYER COMMENTS: NO TRACKING FINAL DIAGNOSIS Urine, voided: Negative for malignant cells. URINE VOID - URINE GROSS DESCRIPTION 50 mls of clear yellow fluid. Signed by and Reported on: Abel Gil MD 1248 END OF REPORT DEPARTMENT OF PATHOLOGY, [address] [place] [address] Abel Gil M.D. Director [facility] # [id number] 2 NO TRACKING 3 SEE RESULT BELOW Name: JULIANNA MANUEL : [address]: Jamaal Rogers MD Acct: [id number] Unit: [id number] AGE: 72 Location: [facility] Re02/09/18 SEX: F Status: REG REF SPEC: [id number] AMPARO: 02/09/[address] [facility] [address]: Jamaal Rogers MD REQ: [id number] RECD: 02/09/18 STATUS: AVINASH LEBRON DR: Ama Sargent MD _ ORDERED: NG THIN LAYER COMMENTS: NO TRACKING FINAL DIAGNOSIS Urine, voided: Negative for malignant cells. URINE VOID - URINE GROSS DESCRIPTION 50 mls of clear yellow fluid. Signed by and Reported on: Abel Gil MD 1248 END OF REPORT DEPARTMENT OF PATHOLOGY, [address] [place] [address] Abel Gil M.D. Director [facility] # [id number] 4 REFERENCE VALUE <=13 (Fasting) ADDITIONAL INFORMATION This test was developed and its performance characteristics determined by [facility] in a manner consistent with CLIA requirements. This test has not been cleared or approved by the U.S. Food and Drug Administration. Test Performed by: [facility] - [address] [address] 5 <1:80 (Negative) REFERENCE VALUE <1:80 (Negative) Test Performed by: [facility] - [address] [address] 6 Normal Range 180 to 914 Indeterminate Range 145 to 180 Deficient Range <145 7 Because ethnic data is not always readily [...] 15-29 5 Kidney failure <15 (or dialysis) 8 SEE RESULT BELOW Name: JULIANNA MANUEL : [address]: Marlene Suárez MD Acct: [id number] Unit: [id number] AGE: 70 Location: [facility] Re08/07/16 SEX: F Status: REG [facility] SPEC: [id number] AMPARO: 08/07/16-[address]: Marlene Suárez MD REQ: [id number] RECD: 08/07/166 STATUS: SOUT _ ORDERED: KERATIN STAIN/5, LEVEL [...] Necrosis: Present. Microcalcifications: Present. Microinvasion: Not identified. ER/HI by immunohistochemistry with appropriate controls: ER: Per [id number] positive, 2-3 plus, 60%. HI: Per [id number] negative. Margins: All margins are negative by greater than 5 mm. Other findings: Skin with no significant pathologic abnormalities. pTNM histopathologic stage: pTis. 2. Breast, left, medial to first specimen, excision: -- Benign breast tissue with prior biopsy site changes, proliferative fibrocystic change, focal microcalcifications, and duct ectasia. 3. [place] lymph node #1, excision: -- One lymph node negative for metastatic carcinoma (0/1). COMMENT: CONTINUED ON NEXT PAGE * ML=Testing performed at Main Lab DEPARTMENT OF PATHOLOGY, [address] [place] [address] Abel Gil M.D. Director [facility] # [id number] RUN DATE: 08/11/16 [facility] LAB LIVE PAGE 2 Patient: JULIANNA MANUEL [id number] (Continued) SPECIMEN COMMENTS (Continued) Per [place] lymph node protocol, a pankeratin immunostain, with [...] serially sectioned from lateral to medial and business services representative sections are submitted in cassettes A [...] serially sectioned from superior to inferior and business services representative sections are submitted in cassettes A through I. 3. The specimen is received in formalin labeled, [place] Node #1, and consists of a 1.0 x 0.7 x 0.5 cm castillo-pink lymph node with a small amount of adherent yellow fat. The cut surface is glistening castillo-pink. The specimen is serially sectioned and entirely submitted in one cassette. CONTINUED ON NEXT PAGE * ML=Testing performed at Main Lab DEPARTMENT OF PATHOLOGY, [address] [place] [address] Abel Gil M.D. Director [facility] # [id number] RUN DATE: 08/11/16 [facility] LAB LIVE PAGE 3 Patient: JULIANNA MANUEL [id number] (Continued) GROSS DESCRIPTION (Continued) Signed (signature on file) Sonya Henley MD 1114 END OF REPORT * ML=Testing performed at Main Lab DEPARTMENT OF PATHOLOGY, [address] [place] [address] Abel Gil M.D. Director [facility] # [id number] 9 SEE RESULT BELOW Name: JULIANNA MANUEL : [address]: Jose R Reece MD Acct: [id number] Unit: [id number] AGE: 70 Location: [facility] Re07/13/16 SEX: F Status: REG REF SPEC: [id number] AMPARO: 07/13/[address] [facility] [address]: Jose R Reece MD REQ: [id number] RECD: 07/27/16 STATUS: AVINASH LEBRON DR: Marlene [...] as benign breast tissue. Microinvasion: Not seen. ER/HI by immunohistochemistry with appropriate controls: ER: Positive, 2-3 plus, 60% of DCIS component. HI: Negative. Other findings: None. Predicted pTNM histopathologic stage: pTis. Comment: I agree with the referring pathologist interpretation. 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 Accompanying these slides is a pathology report labeled with the patient's name and a OS-1 6-0 9119 [facility], [address] [place] [address], signed by Dr. JARAMILLO CONTINUED ON NEXT PAGE * ML=Testing performed at Main Lab DEPARTMENT OF PATHOLOGY, [address] [place] [address] Abel Gil M.D. Director [facility] # [id number] RUN DATE: 07/27/16 [facility] LAB LIVE PAGE 2 Patient: JULIANNA MANUEL [id number] (Continued) GROSS DESCRIPTION (Continued) GROSS DESCRIPTION (Continued) Shanell on 07/15/2016 Signed (signature on file) Abel Gil MD 1535 END OF REPORT * ML=Testing performed at Main Lab DEPARTMENT OF PATHOLOGY, [address] [place] [address] Abel Gil M.D. Director [facility] # [id number] Procedures Date Code Description Status 09/13/2018 56435 EKG Tracing & Interpretation Completed 08/15/2018 97760 Implantable Cardio System Loop Recorder Sys Remota Data Completed Acquistio 08/15/2018 25149 Interrogation Dev Loop Recorder Incl Physician Completed Analysis,Rev,Repor 07/15/2018 94060 Implantable Cardio System Loop Recorder Sys Remota Data Completed Acquistio 07/15/2018 60008 Interrogation Dev Loop Recorder Incl Physician Completed Analysis,Rev,Repor 07/05/2018 37967 EKG Tracing & Interpretation Completed 06/16/2018 09991 Sleep Study Unattended,HRT Rate,Oxygen Sat,Resp Completed Effort/Airflow 06/14/2018 57205 Implantable Cardio System Loop Recorder Sys Remota Data Completed Acquistio 06/14/2018 19236 Interrogation Dev Loop Recorder Incl Physician Completed Analysis,Rev,Repor 05/14/2018 25024 Implantable Cardio System Loop Recorder Sys Remota Data Completed Acquistio 05/14/2018 74648 Interrogation Dev Loop Recorder Incl Physician Completed Analysis,Rev,Repor 04/13/2018 64012 Implantable Cardio System Loop Recorder Sys Remota Data Completed Acquistio 04/13/2018 48353 Interrogation Dev Loop Recorder Incl Physician Completed Analysis,Rev,Repor 03/23/2018 17783 Inject/Drain Joint/Bursa Major W/O US Completed 03/13/2018 63396 Interrogation Dev Loop Recorder Incl Physician Completed Analysis,Rev,Repor 03/13/2018 27855 Implantable Cardio System Loop Recorder Sys Remota Data Completed Acquistio 02/10/2018 18552 Implantable Cardio System Loop Recorder Sys Remota Data Completed Acquistio 02/10/2018 83975 Interrogation Dev Loop Recorder Incl Physician Completed Analysis,Rev,Repor 01/14/2018 53690 EKG Tracing & Interpretation Completed 01/10/2018 60279 Implantable Cardio System Loop Recorder Sys Remota Data Completed Acquistio 01/10/2018 78653 Interrogation Dev Loop Recorder Incl Physician Completed Analysis,Rev,Repor 12/10/2017 25780 Implantable Cardio System Loop Recorder Sys Remota Data Completed Acquistio 12/10/2017 06273 Interrogation Dev Loop Recorder Incl Physician Completed Analysis,Rev,Repor 11/09/2017 50841 Implantable Cardio System Loop Recorder Sys Remota Data Completed Acquistio 11/09/2017 97279 Interrogation Dev Loop Recorder Incl Physician Completed Analysis,Rev,Repor 10/09/2017 04162 Implantable Cardio System Loop Recorder Sys Remota Data Completed Acquistio 10/09/2017 47339 Interrogation Dev Loop Recorder Incl Physician Completed Analysis,Rev,Repor 09/16/2017 17247 EKG Tracing & Interpretation Completed 09/08/2017 09240 Interrogation Dev Loop Recorder Incl Physician Completed Analysis,Rev,Repor 09/08/2017 61138 Implantable Cardio System Loop Recorder Sys Remota Data Completed Acquistio 08/08/2017 71022 Implantable Cardio System Loop Recorder Sys Remota Data Completed Acquistio 08/08/2017 60244 Interrogation Dev Loop Recorder Incl Physician Completed Analysis,Rev,Repor 07/08/2017 28158 Implantable Cardio System Loop Recorder Sys Remota Data Completed Acquistio 07/08/2017 64105 Interrogation Dev Loop Recorder Incl Physician Completed Analysis,Rev,Repor 06/18/2017 25132 EKG Tracing & Interpretation Completed 06/07/2017 32337 Implantable Cardio System Loop Recorder Sys Remota Data Completed Acquistio 06/07/2017 36972 Interrogation Dev Loop Recorder Incl Physician Completed Analysis,Rev,Repor 06/03/2017 55182 EKG Tracing & Interpretation Completed 05/24/2017 67097 Interrogation Device Eval,Implantable Loop Recorder Completed System 05/14/2017 96824 Interrogation Device Eval,Implantable Loop Recorder Completed System 05/06/2017 64969 Implant Cardiac Loop Recorder Completed 04/22/2017 23515 Color Flow Doppler/Interp & Reprt Completed 04/22/2017 99303 Pulse Wave/Continuous-Interp.RPT Completed 04/22/2017 52535 Echocardiography, Transesophageal, Real Time W/Image 2D Completed W/W/O M-M 04/19/2017 02131 EEG Recording Awake & Drowsy Completed 04/16/2017 36242 EKG Tracing & Interpretation Completed 04/12/2017 13675 ECHO Transthorasic Realtime 2D W Doppler & Color Flow Completed Hosp 09/24/2016 35322 EKG Tracing & Interpretation Completed 08/07/2016 37201 Biopsy/Excision Deep Axillary Node(S) Completed 08/07/2016 79261 Mastectomy Partial Completed 08/07/2016 94138419 Mammogram Completed 06/30/2016 37936893 Mammogram Completed 03/22/2015 73218 Stress Test Completed 03/22/2015 35323 Myocardial Perfusion Imaging Tomographic (Spect) Completed Multiple Studies 03/22/2015 95872 Myocardial Perfusion Imaging Tomographic (Spect) Completed Multiple Studies 02/19/2015 93272 Stress ECHO Interpretation/Report Hospital Completed 02/19/2015 69800 Treadmill Interp/Report Only Completed 02/19/2015 99911 Stress Test Supervsn W/Out I/R Completed 01/15/2015 19490 EKG Tracing & Interpretation Completed Encounters Type Date Location Provider Dx Diagnosis Office Visit 08/31/2018 Orthopedic Natacha Ríos, M25.562 Pain in left knee 8:45a Services Of Nolan Rosado M25.462 Effusion, left knee M17.12 Unilateral primary osteoarthritis, left knee Office Visit 07/13/2018 Oncology Cristal Crews, Z51.12 Encounter for 10:00a Services Of Ashlee polooplastic Meme AT [facility] 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 I48.0 Paroxysmal atrial fibrillation Z95.818 Presence of other cardiac implants and grafts M25.461 Effusion, right knee M25.562 Pain in left knee M17.12 Unilateral primary osteoarthritis, left knee Office Visit 04/08/2018 11:30a [facility] Mirella SMary I48.0 Paroxysmal atrial Of [facility] Gautam Suárez fibrillation I47.1 Supraventricular tachycardia Z95.818 Presence of [...] Crews, Z51.12 Encounter for 9:00a Services Of M.D. 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 tachycardia Hr Coordinator AT [facility] Z95.818 Presence of other cardiac implants and grafts E78.00 Pure hypercholesterolemia, unspecified I10 Essential (primary) hypertension Office Visit 09/16/2017 [place] Ama Sargent I47.1 Supraventricular 1:50p Cardiology Of M.D. tachycardia [facility] R55 Syncope and collapse Z95.818 Presence of other cardiac implants and grafts Office Visit 06/30/2017 4:30p Oncology Cristal Crews, D05.12 Intraductal Services [facility] M.DMary carcinoma in situ AT [place] of left breast Z17.0 Estrogen receptor positive status [ER+] M25.50 Pain in unspecified joint Z85.038 Personal history of malignant neoplasm of large intestine Office Visit 06/25/2017 Mitch Reina I47.1 Supraventricular 2:15p Kailyn Emery M.D. tachycardia Services [facility] Z86.73 Prsnl hx of TIA (TIA), and cereb infrc w/o resid deficits Z79.82 intermediate (current) use of aspirin Office Visit 06/18/2017 [place] Ama Sargent I47.1 Supraventricular 1:00p Cardiology Of M.D. tachycardia [facility] Z95.818 Presence of other cardiac implants and grafts G45.9 Transient cerebral ischemic attack, unspecified R55 Syncope and collapse Office Visit 05/14/2017 Mitch Reina R41.0 Disorientation, 2:15p Kailyn Emery M.D. unspecified Services Of [facility] Office Visit 05/14/2017 Jonathan Carmichael5.9 Transient cerebral 11:20a Cardiology Of M.DMary ischemic attack, [facility] AT [facility] unspecified R55 Syncope and collapse Z95.818 Presence of other cardiac implants and grafts I47.1 Supraventricular tachycardia I63.9 Cerebral infarction, unspecified Office Visit 04/16/2017 8:15a [facility] Ama [place], G45.9 Transient Of [facility] Ashlee cerebral ischemic attack, unspecified I10 Essential (primary) hypertension E78.00 Pure hypercholesterolemia, unspecified I47.1 Supraventricular tachycardia C18.9 Malignant neoplasm of colon, unspecified D48.60 Neoplasm of uncertain behavior of unspecified breast R05 Cough Office Visit 04/16/2017 Mitch Emery, G45.9 Transient 11:00a Neurologic M.DMary cerebral ischemic [facility] attack, unspecified R41.1 Anterograde amnesia R41.0 Disorientation, unspecified Z79.82 lobsterman (current) use of aspirin I10 Essential (primary) hypertension Office Visit 01/13/2017 Oncology Cristal Crews, Z51.12 Encounter for 9:11a Services Of Ashlee antineoplastic [facility] AT [facility] Faustino Z85.3 Personal history of malignant neoplasm of breast Z85.038 Personal history of malignant neoplasm of large intestine Office Visit 09/24/2016 [place] Ama Sargent, I47.1 Supraventricular 1:45p Cardiology Of Ashlee tachycardia [facility] R55 Syncope and collapse I10 Essential (primary) hypertension E87.6 Hypokalemia Office Visit 07/29/2016 9:00a Oncology rCistal Crews, Z17.0 Estrogen [facility] Ashlee receptor AT [place] positive status [ER+] 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 Collapse 785.1 Palpitations 794.39 Cardiovascular Study Other Abnormal Office Visit 01/15/2015 10:15a Fa[place] Sargent 780.2 Syncope & Cardiology M.D. Collapse 785.1 Palpitations 276.8 Hypopotassemia 401.1 Hypertension Benign Plan of Treatment Future Appointment(s):09/28/2018 11:00 am - Ica ECHO Schedule at [facility]10/03/2018 9:00 am - Natacha Ríos M.D. at [facility]..10/13/2018 10:00 am - Natacha Ríos M.D. at [facility]..09/13/2018 - Ama Sargent M.D.Z01.810 Encounter for preprocedural cardiovascular examinationComments:You are OK to proceed with the surgery.Stay on Sotalol, but OK to stop other medications as advised by your surgical team.I47.1 Supraventricular tachycardiaComments:You are in normal sinus rhythm today. Intervals are good on SotalolFollow up:6 months with ECG with MD or NPI48.0 Paroxysmal atrial xziytotaqpytC83 Essential (primary) hypertensionComments:Well toaefscapmD72 Syncope and collapseComments:Continue with fluids as you are doing.G45.9 Transient cerebral ischemic attack, unspecifiedComments:It is OK to hold the Eliquis 2-3 days prior to your surgery , resume when Dr Ríos says OK.There is nominal risk of a recurrent stroke.I71.2 Thoracic aortic aneurysm, without ruptureNew Orders:Echocardiogram , Scheduled: 09/28/18Comments:Moderate dilatation on ANANT, we will update.Good BP control will help keep this stable.
[2018-10-13] MEDS ORDERED: Acetaminophen TAB* 325 MG ONE (07:15)
[2018-10-13] MEDS ORDERED: ceFAZolin 2 GM PREMIX in ORs 2 GM/50 ML BAG IVPB ONE (07:15)
[2018-10-13] MEDS ORDERED: Famotidine IV* 10 MG/ML 2 ML (20 mg) ONE (07:15)
[2018-10-13] MEDS ORDERED: Gabapentin CAP(*) 300 MG ONE (07:15)
[2018-10-13] MEDS ORDERED: Lidocaine 2% PF * 5 ML VIAL ONE ×2 (07:43→08:48)
[2018-10-13] MEDS ORDERED: fentaNYL* 50 MCG/ML 2 ML VIAL (100 MCG VIAL) ONE ×3 (07:43→11:06)
[2018-10-13] MEDS ORDERED: Dexamethasone IV* 4 MG/ML 1 ML (4 MG) ONE (07:43)
[2018-10-13] MEDS ORDERED: ROPIVACAINE 5 MG/ML 30 ML BTL (0.5%) ONE ×2 (07:43→08:15)
[2018-10-13] MEDS ORDERED: Propofol* 10 MG/ML 20 ML BTL ONE (07:43)
[2018-10-13] MEDS ORDERED: Ondansetron INJ* 2 MG/ML VIAL ONE (07:43)
[2018-10-13] MEDS ORDERED: Midazolam* 1 MG/ML 10 ML VIAL (10 MG) ONE (07:43)
[2018-10-13] MEDS ORDERED: KETAMINE HCL* 50 MG/ML 10 ML VIAL ONE (07:43)
[2018-10-13] MEDS ORDERED: Bupivacaine 0.5%* 50 ML VIAL ONE (08:13)
[2018-10-13] MEDS ORDERED: Phenylephrine INJ* 10 MG/ML 1 ML VIAL (10 MG) ONE (08:48)
[2018-10-13] MEDS ORDERED: EPHEDrine (Pressors)* 50 MG/ML VIAL ONE (08:48)
[2018-10-13] MEDS ORDERED: Propofol* 500 MG/50 ML BTL ONE (08:49)
[2018-10-13] MEDS ORDERED: VASOPRESSIN 20 UNITS/ML 1 ML VIAL ONE (09:04)
[2018-10-13] MEDS ORDERED: HYDROmorphone INJ1* 1 MG/ML SYRINGE ONE (10:33)
[2018-10-13] MEDS ORDERED: Naloxone* 0.4 MG/ML 1 ML VIAL IV PRN (10:34)
[2018-10-13] MEDS ORDERED: HYDROmorphone INJ1* 1 MG/ML SYRINGE IV PRN (10:34)
[2018-10-13] MEDS ORDERED: DiMENhydriNATE IV* 50 MG/ML VIAL IV PUSH PRN (10:36)
[2018-10-13] MEDS ORDERED: Magnesium Hydroxide LIQ* 30 ML UDC PO PRN (11:02)
[2018-10-13] MEDS ORDERED: oxyCODONE/Acetamin 5/325 MG* TAB PO PRN (11:02)
[2018-10-13] MEDS ORDERED: Cyclobenzaprine TAB* 10 MG PO PRN (11:02)
[2018-10-13] MEDS ORDERED: Polyethylene Glycol 3350* 17 GM PACKET PO PRN (11:02)
[2018-10-13] MEDS ORDERED: Bisacodyl SUPP* 10 MG SUPP PR PRN (11:02)
[2018-10-13] MEDS ORDERED: diPHENhydraMINE IV* 50 MG/ML 1 ml VIAL (BENADRYL) IV PRN (11:02)
[2018-10-13] MEDS ORDERED: Cetirizine* 10 MG TAB PO PRN (11:05)
[2018-10-13] MEDS: fentaNYL* 50 MCG/ML 2 ML VIAL (100 MCG VIAL) IV PRN ×2 (11:27→12:05)
[2018-10-13] MEDS ORDERED: oxyCODONE/Acetamin 5/325 MG* TAB ONE (12:06)
[2018-10-13] MEDS: Morphine VIAL* 4 MG/ML VIAL (1 ml vial) IV PRN (15:02)
[2018-10-13] MEDS: oxyCODONE/Acetamin 5/325 MG* TAB PO PRN ×2 (15:03→22:13)
--- NOTE | 2018-10-13 15:51 | CONS ---
CONSULTATION NOTE: DATE OF CONSULT: 10/13/18 REASON FOR CONSULT: Medical management of a postoperative patient. HISTORY OF PRESENT ILLNESS: The patient is a 72-year-old lady with history of end-stage osteoarthritis of the left knee, who has failed conservative treatment and has chosen to proceed with left knee arthroplasty, postoperative day #0 today. PAST MEDICAL AND SURGICAL HISTORY: AFib versus SVT, TIA x2, hypertension, history of colon cancer, history of breast cancer, thoracic aortic aneurysm, and lymphocytic colitis; status post alarm security or surveillance monitor placement in her left breast due to difficulty ascertaining between AFib with aberrancy and SVT, lumpectomy with left breast radiation and chemotherapy due to her history of breast cancer, hernia repair, , D and C, status post oophorectomy, saphenous vein ligation of the left leg due to varicose veins, and hemicolectomy due to adenocarcinoma where they took about 12 inches of her bowel. HOME MEDICATIONS: As follows: 1. Turmeric root extract. 2. Sotalol. 3. Rosuvastatin. 4. Potassium chloride. 5. Metoprolol succinate. 6. Losartan potassium. 7. Loratadine. 8. Budesonide. 9. Apixaban. 10. Anastrozole. 11. Amlodipine besylate. ALLERGIES: NKDA. FAMILY HISTORY: Cancer, her father had cancer of the lung. Coronary artery disease, her mother. SOCIAL HISTORY: She is a 72-year-old lady. She lives with her and she does not smoke nor use drugs. REVIEW OF SYSTEMS: She mentions that her postoperative pain is starting to increase in severity since having been operated on a few hours before. Other than this, she denied any headaches, dizziness, fevers, chills, nausea, vomiting , chest pain, shortness of breath, increased cough and/or sputum production, abdominal pain, diarrhea, constipation, throat pain, or new skin lesions. The rest of the 14- point review of systems other than what was described is otherwise unremarkable. PHYSICAL EXAM: Reveals the most recent vital signs of record with blood pressure of 116/78, 97.5 degrees Fahrenheit, 65 beats per minute heart rate, 18 per minute respiratory rate, saturating at 100% on room air. General Appearance : The patient is awake, alert, and oriented x3, not in acute distress. HEENT: Normocephalic, atraumatic. PERRLA. Extraocular muscles intact. Negative for icterus. Moist oral mucosa. Negative throat erythema. Neck is soft, supple with no cervical lymphadenopathy, no JVD. Heart: S1, S2 within normal limits. Regular rate and rhythm. No murmurs, rubs, or gallops. Chest: Clear to auscultation bilaterally. Good air entry. No wheezes, rales, or rhonchi. Abdomen is soft, nondistended, nontender. Normoactive bowel sounds x4 quadrants. Extremities: No cyanosis, clubbing, or edema. Psychiatric: No active psychosis, depression, suicidal ideation or homicidal ideation. Skin is warm to touch. MOST RECENT AND PERTINENT LABORATORIES DRAWN: No laboratories drawn on this admission. ASSESSMENT AND PLAN: The patient is a 72-year-old lady with history of end-stage osteoarthritis of the left knee, status post left total knee replacement. 1. End-stage osteoarthritis of the left knee, status post total knee replacement. We will defer with Pain Management and any subsequent input from Orthopedic Surgery and we will continue watchful waiting. 2. Hypertension, well controlled. Continue amlodipine, metoprolol. 3. Supraventricular tachycardia/atrial fibrillation. The patient is on Eliquis and continue rate control with metoprolol and sotalol. The patient is being followed by Dr. Sargent as an outpatient and hence we will defer. 4. Gastroesophageal reflux disease. Continue famotidine. 5. DVT prophylaxis: The patient is on Eliquis for atrial fibrillation with aberrancy versus supraventricular tachycardia as described above. 6. Disposition: Awaiting PT/OT cody. [id number]/[facility] #: [id number] [facility]ENTER[facility]
[2018-10-13] MEDS: Acetaminophen TAB* 325 MG PO SCH ×2 (16:23→23:20)
[2018-10-13] MEDS: ceFAZolin 1 GM ADVAN(*) 1 GM in NS 0.9% 50 ML* 50 ML IVPB SCH (18:34)
[2018-10-13] MEDS: Atorvastatin* 10 MG TAB PO SCH (18:35)
[2018-10-13] MEDS: oxyCODONE TAB* 5 MG TAB PO PRN (18:38)
[2018-10-13] MEDS: Lactated Ringers 1000 ML Bag* 1,000 ML IV SCH (18:38)
--- NOTE | 2018-10-13 21:15 | OP ---
DATE OF OPERATION: 10/13/18 - ROOM #349 DATE OF : 47 SURGEON: Natacha Ríos MD. SEED ANALYSIS LABORATORY ASSISTANT: CARY Cano. Ms. Guerrero did help throughout the procedure with preparation of the leg, wound retraction, manipulation of the knee, and wound closure. ANESTHESIOLOGIST: Dr. Mccarty. ANESTHESIA: Spinal. PRE-OP DIAGNOSIS: Severe end-stage degenerative osteoarthritis of the left knee joint. POST-OP DIAGNOSIS: Severe end-stage degenerative osteoarthritis of the left knee joint. OPERATIVE PROCEDURE: Left total knee arthroplasty. TOURNIQUET TIME: 52 minutes. COMPLICATIONS: None. ESTIMATED BLOOD LOSS: 200 cc. SPECIMEN: Bone and cartilage from the left knee joint sent to Pathology. HARDWARE USED: This is cemented [employer] total knee arthroplasty hardware. For the femur, a size left 6 narrow Legion posterior stabilized femoral component. For the tibia, a size 5 left tibial base plate, Susie II. For the insert, an 11- mm posterior stabilized articular insert, size 5/6 and for the patella, a 32-mm 3- peg all poly patella. BRIEF HISTORY/INDICATION: Ms. Matt Lehman is a 72-year-old female with years of increasingly severe left knee pain. Radiographs showed severe arthritis with end- stage medial bone on bone contact. The patient failed conservative treatment with antiinflammatories, physical therapy and intraarticular injections. Due to continued pain and decreased quality of life, she elected to undergo left total knee arthroplasty. Informed consent was obtained from the patient. She understood the risks of surgery included but were not limited to bleeding, infection, damage to nearby structures, continued pain, need for further surgery, intraoperative fracture, nerve palsy, hardware failure or loosening, knee stiffness, loss of motion, stroke, heart attack, blood clot, and . She wished to proceed. INTRAOPERATIVE FINDINGS: Intraoperatively, the patient was noted to have severe full thickness loss of cartilage in the all 3 compartments. She had extensive medial osteophyte formation. DESCRIPTION OF PROCEDURE: Ms. Matt Lehman was identified in the preanesthesia unit. Her left lower extremity was marked as the correct operative site. Informed consent was signed and placed in the chart. The patient was taken to the operating room and placed under spinal anesthesia. A Duvall catheter was placed. Tourniquet was placed on the left thigh. Left lower extremity was prepped and draped in the usual sterile fashion. Pre-op time-out was made to correctly identify the patient, side, and site. Appropriate perioperative antibiotics were given within 1 hour of incision. Tourniquet was inflated and total tourniquet time for this procedure was 52 minutes. A midline incision was made and carried down to the extensor mechanism. A new 10-blade was used to make a standard medial parapatellar arthrotomy. Patella was subluxed laterally. Electrocautery was used to subperiosteally elevate the soft tissue off the superomedial tibia to the mid sagittal plane. Any osteophytes was carefully removed from around the medial tibial plateau. The knee was flexed up. The anterior horn of the lateral meniscus and ACL were sharply released. A drill was used to enter the distal femur. Intramedullary distal femoral cutting guide was pinned on the distal femur. Oscillating saw was used to make the distal femoral cut. Next, the external rotation guide was pinned on the distal femur. Distal femur was sized to a size 6. Size 6 multi-cutting jig was pinned on the distal femur. Four chamfer cuts were made using the oscillating saw. Next, the PCL was completely released and the tibia was subluxed anteriorly. Extramedullary tibial cutting guide was pinned on the proximal tibia. Oscillating saw was used to make the proximal tibial cut. The bone was carefully removed. The knee was brought out into full extension. Spacer block had excellent fit with the knee in full extension. Medial and lateral ligaments were well balanced. Flexion and extension gaps were well balanced. Lamina supervisor of operations was placed both medially and laterally. Any remaining meniscus was carefully removed using electrocautery. Curved osteotome was used to remove any posterior osteophyte. Tibial tray and drop floresita were placed and a tibial cut was deemed to be satisfactory. A size 6 narrow left femoral trial was impacted onto the distal femur and had excellent fit and stability. The box for the posterior stabilized implant was prepared using a reamer and box cut osteotome. Size 5 tibial tray trial with an 11- mm insert trial was placed and the knee was taken through a range of motion. The knee had full extension to 130 degrees of flexion with good patellofemoral tracking. The patella was everted. 9 mm of patellar bone and cartilage were carefully removed using an oscillating saw. Patella was sized to a size 32. Three peg holes were drilled through the size 32 guide. A 32 trial patella was placed and the knee was taken through a range of motion. There was satisfactory patellofemoral tracking. All trials were removed. The tibia was subluxed anteriorly and sized to a size 5. Proximal tibia was prepared using a size 5 keel punch. All bony cut surfaces were copiously irrigated with sterile saline and dried. Final implants were cemented into place starting with the tibia, followed by the femur, and last the patella. An 11-mm insert trial was placed and the knee was brought out into full extension. Tourniquet was turned down at 52 minutes. Electrocautery was used to obtain meticulous hemostasis. The knee was copiously irrigated with sterile saline. Once the cement had fully cured, the insert trial was removed. Any excess cement was removed from around the capsule and hardware. Final insert chosen was a 11-mm posterior stabilized articular insert, size 5/6. The insert was locked into place on the tibia without difficulty. The insert was musa and checked twice. The extensor mechanism was closed using interrupted #1 Vicryl. The rest of the incision was closed in a layered fashion using 0 and 2-0 Vicryl. Skin was closed using running 3-0 nylon suture. Sterile Xeroform, 4x4s, and Webril were used to cover the incision. Nehemias wrap and cold pack were placed over this. The patient' s anesthesia was reversed without difficulty. She was taken to the PACU in stable condition. Intended weightbearing will be weightbearing as tolerated. Intended DVT prophylaxis will be Eliquis. [id number]/[facility] #: [id number] NICK
[2018-10-13] MEDS: Docusate CAP* 100 MG PO SCH (22:13)
[2018-10-13] MEDS: Magnesium Hydroxide LIQ* 30 ML UDC PO SCH (22:16)
[2018-10-13] MEDS: Sotalol TAB* 80 MG PO SCH (22:16)
[2018-10-14] MEDS: Lactated Ringers 1000 ML Bag* 1,000 ML IV SCH
[2018-10-14] MEDS: oxyCODONE/Acetamin 5/325 MG* TAB PO PRN ×2 (03:30→07:55)
[2018-10-14] MEDS: oxyCODONE TAB* 5 MG TAB PO PRN ×3 (05:47→15:06)
[2018-10-14 06:30] LABS: Hematocrit 31 % (35-47); Hemoglobin 10.5 g/dl (12.0-16.0); Mean Platelet Volume 7.7 fL (7.4-10.4); Platelet Count 178 10^3/ul (150-450)
[2018-10-14 06:47] LABS: INR 0.99 (0.77-1.02)
[2018-10-14 06:52] LABS: BUN/Creatinine Ratio 23.5 (8-20); Calcium 8.8 mg/dL (8.6-10.3); EGFR African American 103.2 (>60); EGFR Non-African American 85.3 (>60); Potassium 3.5 mmol/L (3.5-5.0)
[2018-10-14] MEDS: CMC:Anastrozole (NF) 1 MG TAB PO SCH (07:55)
[2018-10-14] MEDS: Magnesium Hydroxide LIQ* 30 ML UDC PO SCH ×2 (07:56→21:23)
[2018-10-14] MEDS: Apixaban* 2.5 MG TAB PO SCH ×2 (07:56→21:23)
[2018-10-14] MEDS: amLODIPine TAB* 5 MG PO SCH (07:56)
[2018-10-14] MEDS: Losartan TAB* 25 MG PO SCH (07:57)
[2018-10-14] MEDS: Metoprolol Succinate XL TAB* 50 MG PO SCH (07:59)
[2018-10-14] MEDS: Potassium Chlor TAB* 10 MEQ TAB.ER PO SCH (07:59)
[2018-10-14] MEDS: Acetaminophen TAB* 325 MG PO SCH ×2 (08:00→15:09)
[2018-10-14] MEDS: CMCS:Budesonide CAP(NF) 3 MG PO SCH (08:00)
[2018-10-14] MEDS: Docusate CAP* 100 MG PO SCH ×2 (08:02→21:23)
[2018-10-14] MEDS ORDERED: Sotalol TAB* 80 MG PO ONE (08:12)
[2018-10-14] MEDS: ceFAZolin 1 GM ADVAN(*) 1 GM in NS 0.9% 50 ML* 50 ML IVPB SCH ×3 (08:14)
[2018-10-14] MEDS: Sotalol TAB* 80 MG PO SCH (08:15)
--- NOTE | 2018-10-14 10:15 | PN ---
Subjective Date of Service: 10/14/18 Interval History: Pt seen and examined. Meds and labs reviewed. CC: N/A ROS: Denied GREER/dizziness, F/C, N/V, CP, SOB, increased cough, sputum production , abd pain, diarrhea, constipation, dysuria, myalgias, arthralgias, throat pain , and new skin lesions. The rest of the 14 point ROS are unremarkable. PHYSICAL EXAM: GEN APPEARANCE: Awake, not in acute distress HEENT: NC/AT, PERRLA, moist oral mucosa, (-) throat erythema NECK: Soft, supple, (-) cervical LAD, (-)JVD HEART: S1S2 WNL, RRR, No MRG CHEST: CTA, BL, GAE, No W/R/R ABD: Soft, ND/NT, NABS 4x Q EXT: No C/C/LLE cdi SKIN: Warm to touch PSYCH: No active psychosis, hallucinations, depression, SI/HI Objective Active Medications: Acetaminophen (Tylenol Tab*) 975 mg PO Q8H [facility] Last Admin: 10/14/18 08:00 Dose: Not Given Amlodipine Besylate (Norvasc Tab*) 2.5 mg PO QAM [facility] Last Admin: 10/14/18 07:56 Dose: 2.5 mg Anastrozole (Arimidex (Nf)) 1 mg PO QAM [facility] Last Admin: 10/14/18 07:55 Dose: 1 mg Apixaban (Eliquis*) 2.5 mg PO BID [facility] Last Admin: 10/14/18 07:56 Dose: 2.5 mg Atorvastatin Calcium (Lipitor*) 10 mg PO QPM [facility]; Protocol Last Admin: 10/13/18 18:35 Dose: 10 mg Bisacodyl (Dulcolax Supp*) 10 mg HI DAILY PRN PRN Reason: constipation Budesonide (Budesonide Cap(Nf)) 6 mg PO QAM [facility]; Protocol Last Admin: 10/14/18 08:00 Dose: Not Given Cetirizine HCl (Zyrtec*) 10 mg PO QAM PRN PRN Reason: Allergy Symptoms Cyclobenzaprine HCl (Flexeril Tab*) 10 mg PO TID PRN PRN Reason: SPASMS Last Admin: 10/14/18 03:29 Dose: 10 mg Diphenhydramine HCl (Benadryl Iv*) 12.5 mg IV Q6H PRN PRN Reason: PRURITIS Docusate Sodium (Colace Cap*) 100 mg PO BID [facility] Last Admin: 10/14/18 08:02 Dose: 100 mg Lactated Ringer's (Lactated Ringers 1000 Ml Bag*) 1,000 mls @ 100 mls/hr IV PER RATE [facility] Last Admin: 10/14/18 00:00 Dose: 100 mls/hr Lactulose (Lactulose*) 30 ml PO Q6H PRN PRN Reason: constipation Losartan Potassium ([facility]zaar Tab*) [facility] [place] Last Admin: 10/14/18 07:57 Dose: 75 mg Magnesium Hydroxide (Milk Of Magnesia Liq*) 30 ml PO BID [facility] Last Admin: 10/14/18 07:56 Dose: 30 ml Magnesium Hydroxide (Milk Of Magnesia Liq*) 30 ml PO Q6H PRN PRN Reason: constipation Metoprolol Succinate (Toprol Xl Tab*) 50 mg PO [facility] Last Admin: 10/14/18 07:59 Dose: 50 mg Morphine Sulfate (Morphine Vial*) 2 mg IV Q2H PRN PRN Reason: PAIN Last Admin: 10/13/18 15:02 Dose: 2 mg Non-Formulary Med ( (Sotalol 30mg Tab)) 30 admin PO 2100 [facility] Non-Formulary Med (Sotalol 60mg Tab) 60 [facility] [place] Oxycodone HCl (Roxycodone Tab*) 10 mg PO Q4H PRN PRN Reason: SEVERE PAIN Last Admin: 10/14/18 05:47 Dose: 10 mg Oxycodone/Acetaminophen (Percocet 5/325 Tab*) 1 tab PO Q4H PRN PRN Reason: PAIN Last Admin: 10/13/18 12:26 Dose: 1 tab Oxycodone/Acetaminophen (Percocet 5/325 Tab*) 2 tab PO Q4H PRN PRN Reason: PAIN Last Admin: 10/14/18 07:55 Dose: 2 tab Polyethylene Glycol/Electrolytes (Miralax*) 17 gm PO DAILY PRN PRN Reason: Constipation Potassium Chloride (Klor Con Er Tab*) 10 meq PO [facility] Last Admin: 10/14/18 07:59 Dose: 10 meq Tramadol HCl (Ultram*) 50 mg PO Q6H PRN PRN Reason: PAIN Vital Signs - 8 hr 10/14/18 10/14/18 10/14/18 03:29 03:30 05:10 Temperature 98.2 F Pulse Rate 79 Respiratory 16 18 18 Rate Blood Pressure 106/70 (mmHg) O2 Sat by Pulse 97 Oximetry 10/14/18 10/14/18 10/14/18 05:30 05:47 07:55 Temperature Pulse Rate Respiratory 16 16 18 Rate Blood Pressure (mmHg) O2 Sat by Pulse Oximetry Oxygen Devices in Use Now: None Result Diagrams: 10/14/18 06:23 10/14/18 06:23 Assess/Plan/Problems-Billing Assessment: - Patient Problems (1) Status post total left knee replacement Current Visit: Yes Status: Acute Code(s): Z96.652 - PRESENCE OF LEFT ARTIFICIAL KNEE JOINT SNOMED Code(s): 3016399886629 Comment: -POD #1 -Defer w/orthopedic Sx (2) HTN (hypertension) Current Visit: Yes Status: Acute Code(s): I10 - ESSENTIAL (PRIMARY) HYPERTENSION SNOMED Code(s): 30345043 Comment: -Well-controlled -Continue Losartan and Metoprolol (3) FHx: SVT (supraventricular tachycardia) Current Visit: Yes Status: Acute Code(s): Z82.49 - FAMILY HX OF ISCHEM HEART DIS AND OTH DIS OF THE CIRC SYS SNOMED Code(s): 206688787 (4) SVT (supraventricular tachycardia) Current Visit: Yes Status: Acute Code(s): I47.1 - SUPRAVENTRICULAR TACHYCARDIA SNOMED Code(s): 9082192 Comment: #SVT/A.fib: -Continue Metoprolol and Sotalol -Mentioned that she takes 60 mg of Sotalol in AM and 30 mg qHS; since only preparation available in our formulary is 80 mg, she was instructed to obtain her home meds for appropriate dosing. In the mean time, she will receive 40 mg this AM until she procure her meds (5) GERD (gastroesophageal reflux disease) Current Visit: Yes Status: Acute Code(s): K21.9 - GASTRO-ESOPHAGEAL REFLUX DISEASE WITHOUT ESOPHAGITIS SNOMED Code(s): 554666024 Comment: -Continue Famotidine (6) DVT prophylaxis Current Visit: Yes Status: Acute Code(s): PBW3027 - SNOMED Code(s): 220284372 Comment: -Pt on Eliquis as described Status and Disposition: -Defer w/Ortho
[2018-10-14] MEDS: Morphine VIAL* 4 MG/ML VIAL (1 ml vial) IV PRN (11:10)
[2018-10-14] MEDS ORDERED: Ketorolac INJ* 15 MG/ML 1 ML VIAL IV PUSH PRN (11:34)
--- NOTE | 2018-10-14 11:34 | PN ---
Progress Note - Progress Note Date of Service: 10/14/18 SOAP: Subjective: []Patient seen OOB in chair. Does not think the Percocet is working as well as the Oxycodone. Requesting swing bed rehab in [facility]. Objective: [] Vital Signs Temp 98.2 F 10/14/18 05:10 Pulse 79 10/14/18 05:10 Resp 18 10/14/18 11:10 BP 106/70 10/14/18 05:10 Pulse Ox 97 10/14/18 05:10 Intake & Output 10/13/18 10/14/18 10/14/18 18:59 06:59 18:59 Intake Total 3000 1845 320 Output Total 450 750 Balance 2550 1095 320 Weight 161 lb Intake: IV Fluids 3000 1045 ABX - CEFAZOLIN 55 LR 2950 990 NS 50ML, Cefazolin 2G 50 Oral 0 800 320 Output: Duvall 450 750 Other: # Bowel Movements 0 Laboratory Results - last 24 hr 10/14/18 10/14/18 10/14/18 06:23 06:23 06:23 Hgb 10.5 L Hct 31 L Plt Count 178 MPV 7.7 INR (Anticoag Therapy) 0.99 Sodium 138 Potassium 3.5 Chloride 102 Carbon Dioxide 31 Anion Gap 5 BUN 16 Creatinine 0.68 Est GFR ( Amer) 103.2 Est GFR (Non-Af Amer) 85.3 BUN/Creatinine Ratio 23.5 H Glucose 113 H Calcium 8.8 Left knee dressings are dry and intact calf NT and soft +Df left ankle sensation intact distally Assessment: []s/p Left total knee arthroplasty POD #1 Plan: []PT/OT WBAT LLE Eliquis 2.5 mg BID Await approval for swing bed
[2018-10-14] MEDS: traMADol TAB* 50 MG PO PRN ×2 (13:09→21:35)
[2018-10-14] MEDS: Atorvastatin* 10 MG TAB PO SCH (19:42)
[2018-10-14] MEDS ORDERED: SOTALOL PO SCH (21:00)
[2018-10-14] MEDS: SOTALOL 120 MG PO SCH (22:19)
[2018-10-15] MEDS: Acetaminophen TAB* 325 MG PO SCH ×4 (01:30→20:53)
[2018-10-15 06:29] LABS: ABS Basophils 0.1 10^3/ul (0-0.2); ABS Eosinophils 0.1 10^3/ul (0-0.6); ABS Lymphocytes 1.1 10^3/ul (1.0-4.8); ABS Neutrophils 6.3 10^3/ul (1.5-7.7); ABS Nucleated RBC 0 10^3/ul; Eosinophil % 1.3 %; Hematocrit 29 % (35-47); Lymphocyte % 12.9 %; Mean Corpuscular HGB Conc 34 g/dl (31-36); Mean Corpuscular Hemoglobin 31 pg (27-31); Mean Corpuscular Volume 91 fL (80-97); Mean Platelet Volume 8.5 fL (7.4-10.4); Nucleated Red Blood Cells % 0; Platelet Count 167 10^3/ul (150-450); Red Blood Count 3.18 10^6/ul (4.00-5.40); Red Cell Distribution Width 13 % (10.5-15); White Blood Count 8.6 10^3/ul (3.5-10.8)
[2018-10-15 06:34] LABS: INR 1.04 (0.77-1.02)
[2018-10-15 06:46] LABS: Albumin 3.3 g/dL (3.2-5.2); Albumin/Globulin Ratio 1.4 (1-3); BUN/Creatinine Ratio 18.2 (8-20); Calcium 8.5 mg/dL (8.6-10.3); EGFR African American 106.8 (>60); EGFR Non-African American 88.3 (>60); Globulin 2.4 g/dL (2-4); Magnesium 2.4 mg/dL (1.9-2.7); Phosphorus 2.4 mg/dL (2.5-5.0); Potassium 3.9 mmol/L (3.5-5.0); Total Bilirubin 0.5 mg/dL (0.2-1.0); Total Protein 5.7 g/dL (6.4-8.9)
[2018-10-15] MEDS ORDERED: Sodium Phosphate INJ* 10 MMOLE in NS 0.9% 250 ML* 250 ML IVPB ONE (08:30)
[2018-10-15] MEDS ORDERED: Azithromycin IV(*) 500 MG in NS 0.9% 250 ML* 250 ML IVPB ONE (09:00)
[2018-10-15] MEDS ORDERED: SOTALOL PO SCH (09:00)
[2018-10-15] MEDS: Losartan TAB* 25 MG PO SCH (09:37)
[2018-10-15] MEDS: Metoprolol Succinate XL TAB* 50 MG PO SCH (09:38)
[2018-10-15] MEDS: CMCS:Budesonide CAP(NF) 3 MG PO SCH (09:38)
[2018-10-15] MEDS: amLODIPine TAB* 5 MG PO SCH (09:39)
[2018-10-15] MEDS: SOTALOL 120 MG PO SCH ×2 (09:39→20:53)
[2018-10-15] MEDS: Potassium Chlor TAB* 10 MEQ TAB.ER PO SCH (09:39)
[2018-10-15] MEDS: Docusate CAP* 100 MG PO SCH ×2 (09:39→20:54)
[2018-10-15] MEDS: CMC:Anastrozole (NF) 1 MG TAB PO SCH (09:40)
[2018-10-15] MEDS: Magnesium Hydroxide LIQ* 30 ML UDC PO SCH ×2 (09:40→20:53)
[2018-10-15] MEDS: Apixaban* 2.5 MG TAB PO SCH ×2 (09:41→20:53)
--- NOTE | 2018-10-15 09:50 | PN ---
Progress Note - Progress Note Date of Service: 10/15/18 SOAP: Subjective: []Patient seen OOB in chair. Having blood cultures drawn. Patient reports an incident of low O2 sat to 88% overnight but may not have have her CPAP on. She denies cough, chest pain, SOB, palpitations, fever or chills. She is hoping to go to rehab swing bed tomorrow. Objective: [] Vital Signs Temp 98.6 F 10/15/18 08:03 Pulse 96 10/15/18 08:03 Resp 16 10/15/18 08:03 BP 119/78 10/15/18 08:03 Pulse Ox 92 10/15/18 08:03 Intake & Output 10/14/18 10/15/18 10/15/18 18:59 06:59 18:59 Intake Total 1800 930 Output Total 100 0 Balance 1700 930 Intake: IV Fluids 1130 ABX - CEFAZOLIN 110 LR 1020 Oral 670 930 Output: Urine 100 0 Other: Estimated Void Medium # Voids 1 Laboratory Results - last 24 hr 10/15/18 10/15/18 10/15/18 05:58 05:58 05:58 WBC 8.6 RBC 3.18 L Hgb 10.0 L Hct 29 L MCV 91 MCH 31 MCHC 34 RDW 13 Plt Count 167 MPV 8.5 Neut % (Auto) 72.9 Lymph % (Auto) 12.9 Ponce % (Auto) 12.1 Eos % (Auto) 1.3 Baso % (Auto) 0.8 Absolute Neuts (auto) 6.3 Absolute Lymphs (auto) 1.1 Absolute Monos (auto) 1.0 H Absolute Eos (auto) 0.1 Absolute Basos (auto) 0.1 Absolute Nucleated RBC 0 Nucleated RBC % 0 INR (Anticoag Therapy) 1.04 H Sodium 135 Potassium 3.9 Chloride 102 Carbon Dioxide 29 Anion Gap 4 BUN 12 Creatinine 0.66 Est GFR ( Amer) 106.8 Est GFR (Non-Af Amer) 88.3 BUN/Creatinine Ratio 18.2 Glucose 119 H Calcium 8.5 L Phosphorus 2.4 L Magnesium 2.4 Total Bilirubin 0.50 AST 20 ALT 13 Alkaline Phosphatase 36 Total Protein 5.7 L Albumin 3.3 Globulin 2.4 Albumin/Globulin Ratio 1.4 Left knee dressings changed, no erythema or active drainage from incision, minimal ecchymosis 4x4s and SAM applied calf NT and soft +DF left ankle sensation and circulation remain intact Assessment: []s/p Left total knee arthroplasty POD #2 Plan: []CXR done and negative for cardiopulmonary disease BC pending- low index of suspicion for infectious process Continue PT/OT WBAT LLE Eliquis BID for DVT prophylaxis Probable discharge 10/16 [facility]
[2018-10-15] MEDS ORDERED: cefTRIAXone(*) 1 GM in NS 0.9% 50 ML* 50 ML IVPB SCH (10:00)
[2018-10-15 11:01] LABS: Urine Appearance Clear; Urine Bacteria Absent (Absent); Urine Bilirubin Negative (Negative); Urine Blood 3+ (Negative); Urine Color Yellow; Urine Glucose Negative (Negative); Urine Ketones Negative (Negative); Urine Nitrite Negative (Negative); Urine Protein Negative (Negative); Urine Red Blood Cell 2+(6-10/hpf) (Absent); Urine Specific Gravity 1.005 (1.010-1.030); Urine Urobilinogen Negative (Negative); Urine White Blood Cell Trace(0-5/hpf) (Absent)
[2018-10-15] MEDS: traMADol TAB* 50 MG PO PRN (14:54)
--- NOTE | 2018-10-15 15:19 | PN ---
Subjective Date of Service: 10/15/18 Interval History: Pt seen and examined. With mild elevation of Temp not quite meeting febrile criteria (100.1). Meds and labs reviewed. Review of tele shows sinus tachycardia 100-teens earlier w/c resolved spontaneously. CC: N/A ROS: Denied GREER/dizziness, F/C, N/V, CP, SOB, increased cough, sputum production , abd pain, diarrhea, constipation, dysuria, myalgias, arthralgias, throat pain , and new skin lesions. The rest of the 14 point ROS are unremarkable. PHYSICAL EXAM: GEN APPEARANCE: Awake, not in acute distress HEENT: NC/AT, PERRLA, moist oral mucosa, (-) throat erythema NECK: Soft, supple, (-) cervical LAD, (-)JVD HEART: S1S2 WNL, RRR, No MRG CHEST: Bibasal inspiratory crackles, GAE, No W/R/R ABD: Soft, ND/NT, NABS 4x Q EXT: No C/C/LLE cdi SKIN: Warm to touch PSYCH: No active psychosis, hallucinations, depression, SI/HI Objective Active Medications: Acetaminophen (Tylenol Tab*) 975 mg PO 0430,1230,2030 [facility] Last Admin: 10/15/18 12:30 Dose: 975 mg Amlodipine Besylate (Norvasc Tab*) 2.5 mg PO QAM [facility] Last Admin: 10/15/18 09:39 Dose: 2.5 mg Anastrozole (Arimidex (Nf)) 1 mg PO QAM [facility] Last Admin: 10/15/18 09:40 Dose: 1 mg Apixaban (Eliquis*) 2.5 mg PO BID [facility] Last Admin: 10/15/18 09:41 Dose: 2.5 mg Atorvastatin Calcium (Lipitor*) 10 mg PO QPM [facility]; Protocol Last Admin: 10/14/18 19:42 Dose: 10 mg Bisacodyl (Dulcolax Supp*) 10 mg [place] DAILY PRN PRN Reason: constipation Budesonide (Budesonide Cap(Nf)) 6 mg PO QAM [facility]; Protocol Last Admin: 10/15/18 09:38 Dose: 6 mg Cetirizine HCl (Zyrtec*) 10 mg PO QAM PRN PRN Reason: Allergy Symptoms Cyclobenzaprine HCl (Flexeril Tab*) 10 mg PO TID PRN PRN Reason: SPASMS Last Admin: 10/14/18 03:29 Dose: 10 mg Diphenhydramine HCl (Benadryl Iv*) 12.5 mg IV Q6H PRN PRN Reason: PRURITIS Docusate Sodium (Colace Cap*) 100 mg PO BID [facility] Last Admin: 10/15/18 09:39 Dose: 100 mg Lactated Ringer's (Lactated Ringers 1000 Ml Bag*) 1,000 mls @ 100 mls/hr IV PER RATE [facility] Last Admin: 10/14/18 00:00 Dose: 100 mls/hr Ketorolac Tromethamine (Toradol Inj*) 15 mg IV PUSH Q6H PRN PRN Reason: PAIN Last Admin: 10/14/18 13:09 Dose: 15 mg Lactulose (Lactulose*) 30 ml PO Q6H PRN PRN Reason: constipation Losartan Potassium ([facility]zaar Tab*) [facility] [place] Last Admin: 10/15/18 09:37 Dose: 75 mg Magnesium Hydroxide (Milk Of Magnesia Liq*) 30 ml PO BID [facility] Last Admin: 10/15/18 09:40 Dose: 30 ml Magnesium Hydroxide (Milk Of Magnesia Liq*) 30 ml PO Q6H PRN PRN Reason: constipation Metoprolol Succinate (Toprol Xl Tab*) 50 mg PO [facility] Last Admin: 10/15/18 09:38 Dose: 50 mg Morphine Sulfate (Morphine Vial*) 2 mg IV Q2H PRN PRN Reason: PAIN Last Admin: 10/14/18 11:10 Dose: 2 mg Oxycodone HCl (Roxycodone Tab*) 10 mg PO Q4H PRN PRN Reason: SEVERE PAIN Last Admin: 10/14/18 15:06 Dose: 10 mg Oxycodone/Acetaminophen (Percocet 5/325 Tab*) 1 tab PO Q4H PRN PRN Reason: PAIN Last Admin: 10/13/18 12:26 Dose: 1 tab Oxycodone/Acetaminophen (Percocet 5/325 Tab*) 2 tab PO Q4H PRN PRN Reason: PAIN Last Admin: 10/14/18 07:55 Dose: 2 tab Polyethylene Glycol/Electrolytes (Miralax*) 17 gm PO DAILY PRN PRN Reason: Constipation Last Admin: 10/15/18 09:36 Dose: 17 gm Potassium Chloride (Klor Con Er Tab*) 10 meq PO QAM [facility] Last Admin: 10/15/18 09:39 Dose: 10 meq Sotalol HCl (Sotalol (Nf)) 60 mg PO BID [facility] Last Admin: 10/15/18 09:39 Dose: 60 mg Tramadol HCl (Ultram*) 50 mg PO Q6H PRN PRN Reason: PAIN Last Admin: 10/15/18 14:54 Dose: 50 mg Vital Signs - 8 hr 10/15/18 10/15/18 10/15/18 08:03 09:30 11:55 Temperature 98.6 F 99.4 F Pulse Rate 96 91 Respiratory 16 16 16 Rate Blood Pressure 119/78 111/63 (mmHg) O2 Sat by Pulse 92 92 95 Oximetry 10/15/18 14:54 Temperature Pulse Rate Respiratory 16 Rate Blood Pressure (mmHg) O2 Sat by Pulse Oximetry Oxygen Devices in Use Now: None Result Diagrams: 10/15/18 05:58 10/15/18 05:58 Assess/Plan/Problems-Billing Assessment: - Patient Problems (1) Status post total left knee replacement Current Visit: Yes Status: Acute Code(s): Z96.652 - PRESENCE OF LEFT ARTIFICIAL KNEE JOINT SNOMED Code(s): 2943556750583 Comment: -POD #2 -Defer w/orthopedic Sx -Defer pain control w/orthopedic Sx team (2) Atelectasis Current Visit: Yes Status: Acute Comment: -Likely cause of mild elevation of temp not quite being febrile in addition to inspiratory crackles -(-)leukocytosis, cough, nor sputum production -Received 1x dose of Rocephin and Azithromycin, w/c was D/Cd w/reassuring CXR -Pt also have EVELIO but forgot to wear CPAP last night w/c likely worsened perioperative atelectasis -Agree to encouragement of CPAP -Continue to encourage incentive spirometry (3) Tachycardia Current Visit: Yes Status: Acute Code(s): R00.0 - TACHYCARDIA, UNSPECIFIED SNOMED Code(s): 1661973 Comment: -Transient -Likely due to lowered dose of Sotalol given yesterday -Now at baseline HR (4) HTN (hypertension) Current Visit: Yes Status: Acute Code(s): I10 - ESSENTIAL (PRIMARY) HYPERTENSION SNOMED Code(s): 33674582 Comment: -Well-controlled -Continue Losartan and Metoprolol (5) SVT (supraventricular tachycardia) Current Visit: Yes Status: Acute Code(s): I47.1 - SUPRAVENTRICULAR TACHYCARDIA SNOMED Code(s): 7591418 Comment: #SVT/A.fib: -Continue Metoprolol and Sotalol -Mentioned that she takes 60 mg of Sotalol in AM and 30 mg qHS; since only preparation available in our formulary is 80 mg, she was instructed to obtain her home meds for appropriate dosing. In the mean time, she will receive 40 mg this AM until she procure her meds (6) GERD (gastroesophageal reflux disease) Current Visit: Yes Status: Acute Code(s): K21.9 - GASTRO-ESOPHAGEAL REFLUX DISEASE WITHOUT ESOPHAGITIS SNOMED Code(s): 155756181 Comment: -Continue Famotidine (7) DVT prophylaxis Current Visit: Yes Status: Acute Code(s): XUF7678 - SNOMED Code(s): 722995270 Comment: -Pt on Eliquis as described Status and Disposition: -Defer w/Ortho
[2018-10-15] MEDS: Atorvastatin* 10 MG TAB PO SCH (18:22)
[2018-10-16] MEDS: Acetaminophen TAB* 325 MG PO SCH ×2 (04:37→12:12)
[2018-10-16 05:28] LABS: ABS Basophils 0.1 10^3/ul (0-0.2); ABS Eosinophils 0.2 10^3/ul (0-0.6); ABS Lymphocytes 1.3 10^3/ul (1.0-4.8); ABS Monocytes 0.8 10^3/ul (0-0.8); ABS Neutrophils 5.5 10^3/ul (1.5-7.7); ABS Nucleated RBC 0 10^3/ul; Eosinophil % 2.2 %; Hematocrit 28 % (35-47); Hemoglobin 9.6 g/dl (12.0-16.0); Lymphocyte % 16.8 %; Mean Corpuscular HGB Conc 34 g/dl (31-36); Mean Corpuscular Hemoglobin 31 pg (27-31); Mean Corpuscular Volume 91 fL (80-97); Nucleated Red Blood Cells % 0; Platelet Count 163 10^3/ul (150-450); Red Blood Count 3.06 10^6/ul (4.00-5.40); Red Cell Distribution Width 13 % (10.5-15); White Blood Count 7.8 10^3/ul (3.5-10.8)
[2018-10-16 05:35] LABS: INR 1.01 (0.77-1.02)
[2018-10-16 05:49] LABS: BUN/Creatinine Ratio 14.8 (8-20); Calcium 8.7 mg/dL (8.6-10.3); EGFR African American 134.7 (>60); EGFR Non-African American 111.3 (>60); Magnesium 2.2 mg/dL (1.9-2.7); Phosphorus 3.2 mg/dL (2.5-5.0)
[2018-10-16] MEDS ORDERED: Azithromycin IV(*) 250 MG in NS 0.9% 250 ML* 250 ML IVPB SCH (09:00)
--- NOTE | 2018-10-16 09:20 | PN ---
Hospitalist Progress Note Date of Service: 10/16/18 Pt seen and examined. Full note to be written later. Pt complains of mild tachycardia in one-teens. Likely due to reduced Sotalol 2 days ago due to unavailability of home dose in hospital and possibly driven by basline pain of 5 /10 w/spasms. Tachycardia only lasts for a few minutes and usually occurs in AM w/c subsequently resolves. Will make Cyclobenzprine scheduled instead of PRN and will place pt on medium dose Gabapentin. Agree w/planned D/C by Ortho and will defer.
--- NOTE | 2018-10-16 09:59 | PN ---
Progress Note - Progress Note Date of Service: 10/16/18 SOAP: Subjective: [] Patient seen at bedside this am, feeling tired. Had an episode of diarrhea this am from her colitis. Waiting on her medication this morning for this. She had an episode of asymptomatic tachycardia as well, medicine aware. She feels ready to go to swing bed today and medicine concurs. Objective: [] Vital Signs Temp 97.9 F 10/16/18 07:28 Pulse 112 10/16/18 07:28 Resp 18 10/16/18 08:00 BP 134/89 10/16/18 07:28 Pulse Ox 99 10/16/18 07:28 Intake & Output 10/15/18 10/16/18 10/16/18 18:59 06:59 18:59 Intake Total 310 210 0 Output Total 0 0 Balance 310 210 0 Intake: IVPB 310 0 ABX - AZITHROMYCIN 255 0 ABX - CEFTRIAXONE 55 0 Oral 0 210 Output: Urine 0 0 Other: Estimated Void Small # Voids 2 Laboratory Results - last 24 hr 10/15/18 10/15/18 10/16/18 05:58 09:23 05:18 WBC 7.8 RBC 3.06 L Hgb 9.6 L Hct 28 L MCV 91 MCH 31 MCHC 34 RDW 13 Plt Count 163 MPV 8.0 Neut % (Auto) 70.1 Lymph % (Auto) 16.8 [place] % (Auto) 10.0 Eos % (Auto) 2.2 Baso % (Auto) 0.9 Absolute Neuts (auto) 5.5 Absolute Lymphs (auto) 1.3 Absolute Monos (auto) 0.8 Absolute Eos (auto) 0.2 Absolute Basos (auto) 0.1 Absolute Nucleated RBC 0 Nucleated RBC % 0 INR (Anticoag Therapy) Sodium Potassium Chloride Carbon Dioxide Anion Gap BUN Creatinine Est GFR ( Amer) Est GFR (Non-Af Amer) BUN/Creatinine Ratio Glucose Calcium Phosphorus Magnesium B-Natriuretic Peptide 111 H Urine Color Yellow Urine Appearance Clear Urine pH 7.0 Ur Specific [place] 1.005 L Urine Protein Negative Urine Ketones Negative Urine Blood 3+ A Urine Nitrate Negative Urine Bilirubin Negative Urine Urobilinogen Negative Ur Leukocyte Esterase Negative Urine WBC (Auto) Trace(0-5/hpf) Urine RBC (Auto) 2+(6-10/hpf) A Urine Bacteria Absent Urine Glucose Negative 10/16/18 10/16/18 05:18 05:18 WBC RBC Hgb Hct MCV MCH MCHC RDW Plt Count MPV Neut % (Auto) Lymph % (Auto) [place] % (Auto) Eos % (Auto) Baso % (Auto) Absolute Neuts (auto) Absolute Lymphs (auto) Absolute Monos (auto) Absolute Eos (auto) Absolute Basos (auto) Absolute Nucleated RBC Nucleated RBC % INR (Anticoag Therapy) 1.01 Sodium 137 Potassium 4.0 Chloride 105 Carbon Dioxide 28 Anion Gap 4 BUN 8 Creatinine 0.54 Est GFR ( Amer) 134.7 Est GFR (Non-Af Amer) 111.3 BUN/Creatinine Ratio 14.8 Glucose 107 H Calcium 8.7 Phosphorus 3.2 Magnesium 2.2 B-Natriuretic Peptide Urine Color Urine Appearance Urine pH Ur Specific [place] Urine Protein Urine Ketones Urine Blood Urine Nitrate Urine Bilirubin Urine Urobilinogen Ur Leukocyte Esterase Urine WBC (Auto) Urine RBC (Auto) Urine Bacteria Urine Glucose knee incision remains benign calf NT and soft + DF left ankle Assessment: []s/p LTK POD #3 Plan: []Discharge [facility] bed for rehab today follow up as scheduled with Dr. Ríos in office Continue Eliquis bid for 1 month post operatively.
[2018-10-16] MEDS ORDERED: Gabapentin CAP(*) 100 MG PO SCH (10:00)
[2018-10-16] MEDS: CMC:Anastrozole (NF) 1 MG TAB PO SCH (10:11)
[2018-10-16] MEDS: CMCS:Budesonide CAP(NF) 3 MG PO SCH (10:11)
[2018-10-16] MEDS: Losartan TAB* 25 MG PO SCH (10:12)
[2018-10-16] MEDS: SOTALOL 120 MG PO SCH (10:12)
[2018-10-16] MEDS: Metoprolol Succinate XL TAB* 50 MG PO SCH (10:12)
[2018-10-16] MEDS: Apixaban* 2.5 MG TAB PO SCH (10:12)
[2018-10-16] MEDS: Docusate CAP* 100 MG PO SCH (10:12)
[2018-10-16] MEDS: amLODIPine TAB* 5 MG PO SCH (10:13)
[2018-10-16] MEDS: Potassium Chlor TAB* 10 MEQ TAB.ER PO SCH (10:13)
[2018-10-16] MEDS: Magnesium Hydroxide LIQ* 30 ML UDC PO SCH (10:18)
[2018-10-16 11:47] VITALS: BP 135/98
--- NOTE | 2018-10-16 12:14 | DS ---
AMENDED REPORT NOW INCLUDES COSIGNER DESIGNATION DISCHARGE SUMMARY: DATE OF ADMISSION: 10/13/18 DATE OF DISCHARGE: 10/16/18 ATTENDING PHYSICIAN: Dr. aNtacha Ríos.* (DICTATED BY CARY LOO) ADMISSION DIAGNOSIS: Severe end-stage degenerative osteoarthritis, left knee joint. DISCHARGE DIAGNOSIS: Severe end-stage degenerative osteoarthritis, left knee joint. SURGERY PERFORMED: Left total knee arthroplasty. HOSPITAL COURSE: The patient is a 72-year-old female with increasingly severe left knee pain. Her x-rays revealed [id number] end-stage medial arthritis. She failed conservative management with antiinflammatories, physical therapy, intraarticular cortisone injections. Due to continued pain and decreased quality of life, she elected to proceed with left total knee arthroplasty. he was taken to the operating room under the care of Dr. Natacha Ríos on the date of 10/13/18. She tolerated the procedure well and left the operating room in stable condition. Postoperatively, she progressed satisfactorily with the Physical Therapy and Occupational Therapy, goals bearing weight as tolerated on the left lower extremity. She did have a low-grade temperature of 100.1 postoperative day #2. She was worked up by Dr. Ramírez from the medical hospitalist service and there was no evidence of acute cardiopulmonary issue or acute infectious process. She has had intermittent issues with tachycardia that spontaneously resolved. She also has issues with colitis for which she takes medication, had some diarrhea this morning, but feels this does flare at times. Overall, it is felt from the medical and orthopedic standpoint she was stable for discharge to [facility] for additional rehabilitation prior to returning home. CONDITION ON DISCHARGE: Temperature is 97.9; her pulse was last 112 at 0728, it has been roughly 94 to 95 earlier this morning; O2 sats 99% on room air; blood pressure 134/89. Her hemoglobin is 9.6, hematocrit 28. Her left knee incision shows no drainage, erythema, evidence of infectious process. Her calf is soft and nontender. She has active dorsiflexion of the left ankle. She is ambulating well with Physical Therapy in the hallway with her walker. PLAN: Discharge to [facility] for additional rehabilitation. She is on Eliquis for DVT prophylaxis, but has been on this baseline for her atrial fibrillation and will continue with 2.5 mg p.o. b.i.d. She will use Percocet 5/ 325 one to two tablets q.4 hours p.r.n. pain. She is scheduled for a followup in the office with Dr. Ríos in roughly 10 to 14 days postoperatively. CARY LOO [id number]/[facility] #: [id number] NICK
[2018-10-16] MEDS ORDERED: Cyclobenzaprine TAB* 10 MG PO SCH (14:00)
--- NOTE | 2018-10-16 14:14 | PN ---
Subjective Date of Service: 10/16/18 Interval History: Pt seen and examined. Meds and labs reviewed. CC: Slight tachycardia for only a few minutes in the one-teens. Post-op pain ~5 /10; 1x LBM due to known hx of lymphocytic colitis ROS: Denied GREER/dizziness, F/C, N/V, CP, SOB, increased cough, sputum production , abd pain, constipation, dysuria, myalgias, arthralgias, throat pain, and new skin lesions. The rest of the 14 point ROS are unremarkable. PHYSICAL EXAM: GEN APPEARANCE: Awake, not in acute distress HEENT: NC/AT, PERRLA, moist oral mucosa, (-) throat erythema NECK: Soft, supple, (-) cervical LAD, (-)JVD HEART: S1S2 WNL, RRR, No MRG CHEST: CTA, BL, GAE, No W/R/R ABD: Soft, ND/NT, NABS 4x Q EXT: No C/C/E SKIN: Warm to touch PSYCH: No active psychosis, hallucinations, depression, SI/HI Objective Active Medications: Acetaminophen (Tylenol Tab*) 975 mg PO 0430,1230,2030 [facility] Last Admin: 10/16/18 12:12 Dose: 975 mg Amlodipine Besylate (Norvasc Tab*) 2.5 mg PO QAM [facility] Last Admin: 10/16/18 10:13 Dose: 2.5 mg Anastrozole (Arimidex (Nf)) 1 mg PO QAM [facility] Last Admin: 10/16/18 10:11 Dose: 1 mg Apixaban (Eliquis*) 2.5 mg PO BID [facility] Last Admin: 10/16/18 10:12 Dose: 2.5 mg Atorvastatin Calcium (Lipitor*) 10 mg PO QPM [facility]; Protocol Last Admin: 10/15/18 18:22 Dose: 10 mg Bisacodyl (Dulcolax Supp*) 10 mg [place] DAILY PRN PRN Reason: constipation Budesonide (Budesonide Cap(Nf)) 6 mg PO QAM [facility]; Protocol Last Admin: 10/16/18 10:11 Dose: 6 mg Cetirizine HCl (Zyrtec*) 10 mg PO QAM PRN PRN Reason: Allergy Symptoms Cyclobenzaprine HCl (Flexeril Tab*) 10 mg PO TID [facility] Diphenhydramine HCl (Benadryl Iv*) 12.5 mg IV Q6H PRN PRN Reason: PRURITIS Docusate Sodium (Colace Cap*) 100 mg PO BID [facility] Last Admin: 10/16/18 10:12 Dose: 100 mg Gabapentin (Neurontin Cap(*)) 200 mg PO TID [facility] Last Admin: 10/16/18 10:12 Dose: 200 mg Lactated Ringer's (Lactated Ringers 1000 Ml Bag*) 1,000 mls @ 100 mls/hr IV PER RATE [facility] Last Admin: 10/14/18 00:00 Dose: 100 mls/hr Ketorolac Tromethamine (Toradol Inj*) 15 mg IV PUSH Q6H PRN PRN Reason: PAIN Last Admin: 10/14/18 13:09 Dose: 15 mg Lactulose (Lactulose*) 30 ml PO Q6H PRN PRN Reason: constipation Losartan Potassium (Cozaar Tab*) 75 mg PO QAM [facility] Last Admin: 10/16/18 10:12 Dose: 75 mg Magnesium Hydroxide (Milk Of Magnesia Liq*) 30 ml PO BID [facility] Last Admin: 10/16/18 10:18 Dose: Not Given Magnesium Hydroxide (Milk Of Magnesia Liq*) 30 ml PO Q6H PRN PRN Reason: constipation Metoprolol Succinate (Toprol Xl Tab*) 50 mg PO [facility] Last Admin: 10/16/18 10:12 Dose: 50 mg Morphine Sulfate (Morphine Vial*) 2 mg IV Q2H PRN PRN Reason: PAIN Last Admin: 10/14/18 11:10 Dose: 2 mg Oxycodone HCl (Roxycodone Tab*) 10 mg PO Q4H PRN PRN Reason: SEVERE PAIN Last Admin: 10/14/18 15:06 Dose: 10 mg Oxycodone/Acetaminophen (Percocet 5/325 Tab*) 1 tab PO Q4H PRN PRN Reason: PAIN Last Admin: 10/13/18 12:26 Dose: 1 tab Oxycodone/Acetaminophen (Percocet 5/325 Tab*) 2 tab PO Q4H PRN PRN Reason: PAIN Last Admin: 10/14/18 07:55 Dose: 2 tab Polyethylene Glycol/Electrolytes (Miralax*) 17 gm PO DAILY PRN PRN Reason: Constipation Last Admin: 10/15/18 09:36 Dose: 17 gm Potassium Chloride (Klor Con Er Tab*) 10 meq PO QAM [facility] Last Admin: 10/16/18 10:13 Dose: 10 meq Sotalol HCl (Sotalol (Nf)) 60 mg PO BID [facility] Last Admin: 10/16/18 10:12 Dose: 60 mg Tramadol HCl (Ultram*) 50 mg PO Q6H PRN PRN Reason: PAIN Last Admin: 10/15/18 14:54 Dose: 50 mg Vital Signs - 8 hr 10/16/18 10/16/18 10/16/18 07:28 08:00 10:12 Temperature 97.9 F Pulse Rate 112 Respiratory 16 18 16 Rate Blood Pressure 134/89 (mmHg) O2 Sat by Pulse 99 Oximetry 10/16/18 10/16/18 11:43 12:42 Temperature 97.8 F Pulse Rate 102 Respiratory 16 18 Rate Blood Pressure 135/98 (mmHg) O2 Sat by Pulse 100 Oximetry Oxygen Devices in Use Now: CPAP Result Diagrams: 10/16/18 05:18 10/16/18 05:18 Microbiology and Other Data: Microbiology 10/15/18 09:23 Urine Culture - Final Urine No Growth (<1,000 CFU/mL) 10/15/18 08:55 Aerobic Blood Culture - Preliminary Blood Venous No Growth Day 1 Anaerobic Blood Culture - Preliminary No Growth Day 1 10/15/18 09:02 Aerobic Blood Culture - Preliminary Blood Venous No Growth Day 1 Anaerobic Blood Culture - Preliminary No Growth Day 1 Assess/Plan/Problems-Billing Assessment: - Patient Problems (1) Status post total left knee replacement Current Visit: Yes Status: Acute Code(s): Z96.652 - PRESENCE OF LEFT ARTIFICIAL KNEE JOINT SNOMED Code(s): 0424498811746 Comment: -POD #3 -Defer w/orthopedic Sx -Defer pain control w/orthopedic Sx team -Changed Cyclobenzaprine to scheduled dose TID instead of PRN given primary complaint of spasms -Continue current pain meds (2) Atelectasis Current Visit: Yes Status: Acute Comment: -Likely cause of mild elevation of temp yesterday not quite being febrile in addition to inspiratory crackles -(-)leukocytosis, cough, nor sputum production -Received 1x dose of Rocephin and Azithromycin, w/c was D/Cd w/reassuring CXR yesterday -Pt also have EVELIO but forgot to wear CPAP last night w/c likely worsened perioperative atelectasis due to loss of nocturnal positive pressures -Agree to encouragement of CPAP -Continue to encourage incentive spirometry (3) Tachycardia Current Visit: Yes Status: Acute Code(s): R00.0 - TACHYCARDIA, UNSPECIFIED SNOMED Code(s): 7310731 Comment: -Transient -Likely due to lowered dose of Sotalol given 2 days ago along w/severe spasms on movement -Continue Sotalol and above pain control regimen titrated (4) HTN (hypertension) Current Visit: Yes Status: Acute Code(s): I10 - ESSENTIAL (PRIMARY) HYPERTENSION SNOMED Code(s): 32147646 Comment: -Well-controlled -Continue Losartan and Metoprolol (5) SVT (supraventricular tachycardia) Current Visit: Yes Status: Acute Code(s): I47.1 - SUPRAVENTRICULAR TACHYCARDIA SNOMED Code(s): 4696378 Comment: #SVT/A.fib: -Continue Metoprolol and Sotalol (6) GERD (gastroesophageal reflux disease) Current Visit: Yes Status: Acute Code(s): K21.9 - GASTRO-ESOPHAGEAL REFLUX DISEASE WITHOUT ESOPHAGITIS SNOMED Code(s): 458599078 Comment: -Continue Famotidine (7) DVT prophylaxis Current Visit: Yes Status: Acute Code(s): DLM5371 - SNOMED Code(s): 989206988 Comment: -Pt on Eliquis as described Status and Disposition: -Agree w/planned D/C today by Ortho and will defer
== END 2018-10-16 13:45 | disposition swing bed (61) | DRG 302 ==
LOC: AA 10-13 06:59 → SSU 10-13 13:43
PROVIDERS: ADMIT Orthopaedic Surgery Adult Reconstructive Orthopaedic Surgery; ATTEND Orthopaedic Surgery Adult Reconstructive Orthopaedic Surgery
PROC: 0SRD0J9 Replacement of Left Knee Joint with Synthetic Substitute, Cemented, Open Approach (ICD-10-PCS; principal; 2018-10-13 08:45)
DX: M17.12 Unilateral primary osteoarthritis, left knee (principal); J98.11 Atelectasis; I47.1 Supraventricular tachycardia; R50.82 Postprocedural fever; I48.91 Unspecified atrial fibrillation; I71.2 Thoracic aortic aneurysm, without rupture; I10 Essential (primary) hypertension; K52.832 Lymphocytic colitis; M25.762 Osteophyte, left knee; K21.9 Gastro-esophageal reflux disease without esophagitis; Z80.1 Family history of malignant neoplasm of trachea, bronchus and lung; Z82.49 Family history of ischemic heart disease and other diseases of the circulatory system; Z85.038 Personal history of other malignant neoplasm of large intestine; Z85.3 Personal history of malignant neoplasm of breast; Z95.0 Presence of cardiac pacemaker; Z86.73 Personal history of transient ischemic attack (TIA), and cerebral infarction without residual deficits; Z92.21 Personal history of antineoplastic chemotherapy; Z92.3 Personal history of irradiation; Z79.01 Long term (current) use of anticoagulants; Z79.1 Long term (current) use of non-steroidal anti-inflammatories (NSAID); Z79.899 Other long term (current) drug therapy
CPT/HCPCS: 36415; 71045; 80048; 80053; 81003; 81015; 83605; 83735; 83880; 84100; 85014; 85018; 85025; 85049; 85610; 87040; 87086; 88305; 88311; A9270-GY; C1776; G8978-GP-CL; G8979-GP-CI; J0456; J0690; J0696; J1100; J1170; J1885; J2250; J2270; J2405; J2704; J2795; J3010